=== PATIENT | female | born 1940 | race Caucasian/White ===

== ENCOUNTER → 2018-01-11 | Outpatient (CLI) | payer MEDICARE ==
[~2018-01-11] MED LIST: ASPI325 PO; CLOP75 PO; LEVSOD125 PO; Lisinopril2.5 MG; METF500 PO; PRED5 PO; Percocet 5-3251 EACH PO; SERT100 PO
[2018-01-11 15:25] LABS: Source, Urine Clean Catch
[2018-01-11 18:07] LABS: Appearance, Urine Clear (Clear); Bilirubin, Urine Neg (Neg); Blood, Urine Neg (Neg); Color, Urine Yellow (P-Yellow); Glucose Qualitative, Urine Neg (Neg); Ketones, Urine Neg (Neg); Leukocyte Esterase, Urine 1+ (Neg); Nitrite, Urine Neg (Neg); Protein, Urine Neg (Neg); Specific Gravity, Urine 1.015 (1.003-1.022); Urobilinogen, Urine NORM (Normal)
[2018-01-11 19:13] LABS: Bacteria Many /hpf; Red Blood Cells, Urine 0-2 /hpf (0-2); Squamous Epithelial Cells Few /hpf (Few)
== END | disposition home or self-care (01) ==
LOC: LAB 15:23 → LAB SHORT 15:23
PROVIDERS: Internal Medicine
DX: N39.0 Urinary tract infection, site not specified (principal)
CPT/HCPCS: 81001; 87077; 87086; 87147; 87186

== ENCOUNTER → 2019-05-14 | Outpatient (CLI) | payer MEDICARE ==
[2019-05-14 13:24] LABS: Source, Urine Clean Catch
[2019-05-14 14:57] LABS: Bilirubin, Urine Neg (Neg); Blood, Urine Neg (Neg); Glucose Qualitative, Urine Neg (Neg); Ketones, Urine Neg (Neg); Leukocyte Esterase, Urine 2+ (Neg); Nitrite, Urine Neg (Neg); Protein, Urine Neg (Neg); Specific Gravity, Urine 1.015 (1.003-1.022); Urobilinogen, Urine NORM (Normal)
[2019-05-14 15:07] LABS: Appearance, Urine Clear (Clear); Color, Urine Yellow (P-Yellow)
[2019-05-14 15:08] LABS: Bacteria Few /hpf; Red Blood Cells, Urine 0-2 /hpf (0-2); Squamous Epithelial Cells Few /hpf (Few)
== END | disposition home or self-care (01) ==
LOC: LAB SHORT 13:23 → OLS 13:23 → EDSTATUS 05-12 19:50 → LAB FUT 05-12 19:50
PROVIDERS: Physician Assistant
DX: N39.0 Urinary tract infection, site not specified (principal)
CPT/HCPCS: 81001; 87086; 87147

== ENCOUNTER → 2020-10-20 | Outpatient (CLI) | payer MEDICARE ==
[~2020-10-20] MED LIST changes: +CODACE30 PO; +LEVO750 PO
[2020-10-20 10:38] LABS: Source, Urine Clean Catch
[2020-10-20 12:21] LABS: Appearance, Urine Clear (Clear); Bilirubin, Urine Neg (Neg); Blood, Urine Neg (Neg); Color, Urine Yellow (P-Yellow); Glucose Qualitative, Urine Neg (Neg); Ketones, Urine Neg (Neg); Leukocyte Esterase, Urine 1+ (Neg); Nitrite, Urine Neg (Neg); Protein, Urine 1+ (Neg); Urobilinogen, Urine NORM (Normal)
[2020-10-20 12:40] LABS: Bacteria Many /hpf; Squamous Epithelial Cells Mod /hpf (Few)
[2020-10-20 12:41] LABS: Red Blood Cells, Urine 0-2 /hpf (0-2)
== END | disposition home or self-care (01) ==
LOC: LAB SHORT 10:35
PROVIDERS: Internal Medicine
DX: R30.0 Dysuria (principal)
CPT/HCPCS: 81001; 87086

== ENCOUNTER 2020-10-22 05:13 | Emergency (ER) | payer MEDICARE ==
[~2020-10-22] VITALS: Ht 162.6 cm; Wt 78.9 kg
[~2020-10-22 05:13] MED LIST changes: -CODACE30 PO; -LEVO750 PO
[2020-10-22 05:37] LABS: BASOPHILS ABSOLUTE AUTO 0.05 K/mm3 (0.00-0.23); BASOPHILS PERCENT AUTO 0 % (0-2); EOSINOPHILS ABSOLUTE AUTO 0.19 K/mm3 (0.00-0.68); EOSINOPHILS PERCENT AUTO 1 % (0-6); Hematocrit 36.3 % (33.0-51.0); Hemoglobin 11.7 g/dL (11.5-16.0); IMMATURE GRAN PERCENT AUTO 1 % (0-1); LYMPHOCYTES ABSOLUTE AUTO 1.18 K/mm3 (0.84-5.20); LYMPHOCYTES PERCENT AUTO 8 % (21-46); MONOCYTES ABSOLUTE AUTO 1.17 K/mm3 (0.16-1.47); MONOCYTES PERCENT AUTO 8 % (4-13); Mean Corpuscular HGB 28.6 pg (26.0-34.0); Mean Corpuscular HGB Conc 32.2 g/dL (31.5-36.5); Mean Corpuscular Volume 89 fL (80-100); Mean Platelet Volume 9.9 fL (9.1-12.4); NEUTROPHILS PERCENT AUTO 82 % (41-73); Platelet Count 433 K/mm3 (150-400); RDW Coefficient Variation 13.9 % (11.7-14.2); RDW Standard Deviation 45.4 fL (35.1-46.3); Red Blood Cell Count 4.09 M/mm3 (3.80-5.20); White Blood Cell Count 14.49 K/mm3 (4.00-11.30)
[2020-10-22 05:59] LABS: Alanine Aminotransfer (ALT/SGP 14 U/L (12-78); Albumin, Blood 2.7 g/dL (3.4-5.0); Albumin/Globulin Ratio 0.6 (0.8-1.8); Alk Phos 93 U/L (50-136); Anion Gap 8 mmol/L (6-16); Aspartate Aminotrans (AST/SGOT 15 U/L (12-37); Bilirubin, Total 0.4 mg/dL (0.1-1.0); Blood Urea Nitrogen 12 mg/dL (8-24); CO2, Blood 23 mmol/L (21-32); Calcium, Blood 8.7 mg/dL (8.5-10.1); Chloride, Blood 103 mmol/L (98-108); Creatinine, Blood 0.57 mg/dL (0.40-1.00); Globulin, Blood 4.7 g/dL (2.2-4.0); Glomerular Filtration Rate >60 (60-); Glucose, Blood 125 mg/dL (70-99); Potassium, Blood 3.3 mmol/L (3.5-5.5); Sodium, Blood 134 mmol/L (136-145); Total Protein, Blood 7.4 g/dL (6.4-8.2); Troponin I <0.015 ng/mL (0.000-0.040)
[2020-10-22] MEDS ORDERED: CODACE30 PO (06:57)
[2020-10-22] MEDS ORDERED: LEVO750 PO (06:57)
== END 2020-10-22 07:40 | disposition home or self-care (01) ==
LOC: ER 05:13
PROVIDERS: Emergency Medicine
DX: J18.9 Pneumonia, unspecified organism (principal); E87.6 Hypokalemia; I10 Essential (primary) hypertension; E11.9 Type 2 diabetes mellitus without complications; E03.9 Hypothyroidism, unspecified; Z79.899 Other long term (current) drug therapy; Z79.02 Long term (current) use of antithrombotics/antiplatelets
CPT/HCPCS: 71045; 80053; 84484; 85025; 93005; 93010; 99285-25; A9270

== ENCOUNTER 2020-11-28 21:34 | Inpatient (IN) | payer MEDICARE ==
[~2020-11-28] VITALS: Ht 160 cm; Wt 73.5 kg
[~2020-11-28 21:34] MED LIST changes: +CODACE30 PO; +LEVO750 PO; -Lisinopril2.5 MG; +Lisinopril2.5 MG PO
[2020-11-28 23:11] LABS: BASOPHILS ABSOLUTE AUTO 0.03 K/mm3 (0.00-0.23); BASOPHILS PERCENT AUTO 0 % (0-2); EOSINOPHILS ABSOLUTE AUTO 0.01 K/mm3 (0.00-0.68); EOSINOPHILS PERCENT AUTO 0 % (0-6); Hematocrit 26.1 % (33.0-51.0); Hemoglobin 8.3 g/dL (11.5-16.0); IMMATURE GRAN ABSOLUTE AUTO 0.08 K/mm3 (0.00-0.10); IMMATURE GRAN PERCENT AUTO 1 % (0-1); LYMPHOCYTES PERCENT AUTO 11 % (21-46); MONOCYTES ABSOLUTE AUTO 0.61 K/mm3 (0.16-1.47); MONOCYTES PERCENT AUTO 5 % (4-13); Mean Corpuscular HGB 25.9 pg (26.0-34.0); Mean Corpuscular HGB Conc 31.8 g/dL (31.5-36.5); Mean Corpuscular Volume 82 fL (80-100); Mean Platelet Volume 9.5 fL (9.1-12.4); NEUTROPHILS ABSOLUTE AUTO 9.41 K/mm3 (1.96-9.15); NEUTROPHILS PERCENT AUTO 82 % (41-73); Platelet Count 397 K/mm3 (150-400); RDW Coefficient Variation 15.7 % (11.7-14.2); RDW Standard Deviation 46.5 fL (35.1-46.3); White Blood Cell Count 11.44 K/mm3 (4.00-11.30)
[2020-11-28 23:43] LABS: Alanine Aminotransfer (ALT/SGP 59 U/L (12-78); Albumin, Blood 1.6 g/dL (3.4-5.0); Albumin/Globulin Ratio 0.4 (0.8-1.8); Alk Phos 148 U/L (50-136); Anion Gap 8 mmol/L (6-16); Aspartate Aminotrans (AST/SGOT 140 U/L (12-37); Bilirubin, Total 0.5 mg/dL (0.1-1.0); Blood Urea Nitrogen 7 mg/dL (8-24); Bun/Creatinine Ratio 16.2 (12.0-20.0); CO2, Blood 30 mmol/L (21-32); Calcium, Blood 7.5 mg/dL (8.5-10.1); Chloride, Blood 96 mmol/L (98-108); Creatinine, Blood 0.43 mg/dL (0.40-1.00); Glomerular Filtration Rate >60 (60-); Glucose, Blood 144 mg/dL (70-99); Potassium, Blood 2.3 mmol/L (3.5-5.5); Sodium, Blood 134 mmol/L (136-145); Total Protein, Blood 5.6 g/dL (6.4-8.2)
--- NOTE | 2020-11-29 03:20 | NUR ---
RECEIVED REPORT FROM ARACELIED RN. PT TRANSPORTED TO MEDICAL FLOOR VIA GURNEY, AMBULATED TO BATHROOM, THEN TO BED WITH 1 ASSIST; STEADY GAIT. VS REVIEWED,WNL. SITUATED IN BED, ORIENTED TO ROOM/UNIT. IVF INFUSING ORDERED. NO OTHER ACUTE NEEDS ASSESSED AT THIS TIME. CALL LIGHT, POSSESSIONS IN REACH, BED IN LOW AND LOCKED POSITION WITH ALARMS ON. WILL REPORT OFF TO ONCOMING RN.
[2020-11-29 05:00] LABS: BASOPHILS ABSOLUTE AUTO 0.01 K/mm3 (0.00-0.23); BASOPHILS PERCENT AUTO 0 % (0-2); EOSINOPHILS ABSOLUTE AUTO 0.02 K/mm3 (0.00-0.68); EOSINOPHILS PERCENT AUTO 0 % (0-6); Hematocrit 26.9 % (33.0-51.0); Hemoglobin 8.5 g/dL (11.5-16.0); IMMATURE GRAN ABSOLUTE AUTO 0.07 K/mm3 (0.00-0.10); IMMATURE GRAN PERCENT AUTO 1 % (0-1); LYMPHOCYTES ABSOLUTE AUTO 1.11 K/mm3 (0.84-5.20); LYMPHOCYTES PERCENT AUTO 10 % (21-46); MONOCYTES PERCENT AUTO 6 % (4-13); Mean Corpuscular HGB 25.8 pg (26.0-34.0); Mean Corpuscular HGB Conc 31.6 g/dL (31.5-36.5); Mean Corpuscular Volume 82 fL (80-100); Mean Platelet Volume 9.4 fL (9.1-12.4); NEUTROPHILS ABSOLUTE AUTO 9.37 K/mm3 (1.96-9.15); NEUTROPHILS PERCENT AUTO 83 % (41-73); Platelet Count 448 K/mm3 (150-400); RDW Coefficient Variation 15.7 % (11.7-14.2); RDW Standard Deviation 46.4 fL (35.1-46.3); Red Blood Cell Count 3.29 M/mm3 (3.80-5.20); White Blood Cell Count 11.28 K/mm3 (4.00-11.30)
--- NOTE | 2020-11-29 05:00 | NUR ---
SPOKE TO DR. CHEN REGARDING PT'S IVF ORDER. NO NEW ORDERS RECEIVED, CONTINUE TO INFUSE ORDERED. PHARMACIST INFORMED OF CONVERSATION.
[2020-11-29 05:15] LABS: International Normalized Ratio 1.32
[2020-11-29 05:24] LABS: Anion Gap 8 mmol/L (6-16); Blood Urea Nitrogen 7 mg/dL (8-24); Bun/Creatinine Ratio 14.9 (12.0-20.0); CO2, Blood 31 mmol/L (21-32); Calcium, Blood 8.1 mg/dL (8.5-10.1); Chloride, Blood 92 mmol/L (98-108); Creatinine, Blood 0.47 mg/dL (0.40-1.00); Glomerular Filtration Rate >60 (60-); Glucose, Blood 175 mg/dL (70-99); Magnesium, Blood 1.9 mg/dL (1.6-2.4); Potassium, Blood 2.6 mmol/L (3.5-5.5); Sodium, Blood 131 mmol/L (136-145)
[2020-11-29 11:11] LABS: Color, Body Fluid Red (None-Yellow)
[2020-11-29 11:12] LABS: Appearance, Body Fluid Cloudy (Clear); Automated BF RBC Count 0.011 M/mm3 (0-0); Body Fluid WBC Count 30140 /mm3 (0-999); RBC Count, Body Fluid 11000 /mm3 (0-0)
[2020-11-29 11:19] LABS: Protein, Body Fluid 0.6 g/dL
[2020-11-29 11:53] LABS: Total Cell Count, Body Fluid 100
--- NOTE | 2020-11-29 17:11 | NUR ---
SHIFT SUMMARY PATIENT ALERT AND ORIENTED THIS SHIFT. PATIENT DOWN FOR THOROCENTESIS THIS AM. PATIENT ALTERNATES FROM BED TO CHAIR THIS SHIFT. PATIENT UP TO BATHROOM WITH SBA. PATIENT STATES PAIN FROM PREVIOUS RIB FRACTURES IS ACCEPTABLE THIS SHIFT. PATIENT DENIES FURTHER PAIN AT THIS TIME. PATIENT'S DAUGHTER IN THE ROOM VISITING THIS AFTERNOON. PATIENT CURRENTLY LYING IN BED RESTING.
[2020-11-30 06:15] LABS: Hematocrit 27.8 % (33.0-51.0); Hemoglobin 8.5 g/dL (11.5-16.0); Mean Corpuscular HGB Conc 30.6 g/dL (31.5-36.5); Mean Corpuscular Volume 85 fL (80-100); Mean Platelet Volume 9.5 fL (9.1-12.4); Platelet Count 389 K/mm3 (150-400); RDW Coefficient Variation 15.8 % (11.7-14.2); RDW Standard Deviation 48.7 fL (35.1-46.3); Red Blood Cell Count 3.27 M/mm3 (3.80-5.20)
--- NOTE | 2020-11-30 06:31 | NUR ---
SHIFT SUMMARY NO ACUTE CHANGES THIS SHIFT, NO C/O ANY KIND, SLEPT T/O THE NIGHT, JUST RETURNED TO ROOM FROM IMAGING, BEDRESTING WATCHING TV, CALL LIGHT IN REACH, WILL CONT TO MONITOR UNTIL REPORT GIVEN TO DAY RN.
[2020-11-30 06:38] LABS: Anion Gap 6 mmol/L (6-16); Blood Urea Nitrogen 8 mg/dL (8-24); Bun/Creatinine Ratio 14.8 (12.0-20.0); CO2, Blood 31 mmol/L (21-32); Calcium, Blood 8.2 mg/dL (8.5-10.1); Chloride, Blood 99 mmol/L (98-108); Creatinine, Blood 0.54 mg/dL (0.40-1.00); Ferritin, Serum 358 ng/mL (8-252); Glomerular Filtration Rate >60 (60-); Glucose, Blood 122 mg/dL (70-99); Iron Serum 30 ug/dL (50-170); Percent Saturation 17.6 % (15.0-50.0); Potassium, Blood 3.4 mmol/L (3.5-5.5); Sodium, Blood 136 mmol/L (136-145); Total Iron Binding Capacity 170 ug/dL (250-450)
--- NOTE | 2020-11-30 17:10 | NUR ---
SHIFT SUMMARY PATIENT A/O, SBA TO THE BATHROOM THIS SHIFT. PATIENT DOWN TO IMAGING FOR CHEST TUBE PLACEMENT THIS AM. PATIENT BACK WITH CT IN RIGHT POSTERIOR CHEST. PATIENT IDENTIFIES MILD DISCOMFORT AT INSERTION SITE. TUBE DRAINING LIGHT BROWN FLUID. 225 ML REMOVED AT THIS TIME. PATIENT ALTERNATING LYING IN BED AND SITTING UP IN CHAIR. PATIENT CURRENTLY LYING IN BED RESTING.
--- NOTE | 2020-11-30 19:40 | NUR ---
RECEIVED BEDSIDE REPORT FROM TAMAR RN. PT LYING IN BED. RESP E/U ON RA. A/O. SBA TO BATHROOM. BED ALARMED. CHEST TUBE TO RIGHT SIDE, DRAINING PURULENT CHALKY COLORED FLUID. WILL CONTINUE TO PROVIDE CARE T/O SHIFT. CALL LT IN REACH.
--- NOTE | 2020-11-30 21:59 | NUR ---
PT LYING IN BED WATCHING TV. NO NEEDS AT THIS TIME. PT HAD BEEN UP EARLIER TO WASH FACE AND DO SOME PERSONAL CARE. SECTION HAND HELPER SUPERVISED. BED ALARMED. CALL LT IN REACH.
--- NOTE | 2020-12-01 00:04 | NUR ---
PT RESTING QUIETLY. CALL LT IN REACH. BED ALARM ON.
[2020-12-01 05:00] LABS: Hematocrit 28.7 % (33.0-51.0); Hemoglobin 8.7 g/dL (11.5-16.0); Mean Corpuscular HGB 25.9 pg (26.0-34.0); Mean Corpuscular HGB Conc 30.3 g/dL (31.5-36.5); Mean Corpuscular Volume 85 fL (80-100); Mean Platelet Volume 9.5 fL (9.1-12.4); Platelet Count 381 K/mm3 (150-400); RDW Standard Deviation 49.1 fL (35.1-46.3); Red Blood Cell Count 3.36 M/mm3 (3.80-5.20); White Blood Cell Count 8.14 K/mm3 (4.00-11.30)
--- NOTE | 2020-12-01 05:08 | NUR ---
PT RESTING QUIETLY. BED ALARM ON. CALL LT IN REACH.
[2020-12-01 05:30] LABS: Anion Gap 6 mmol/L (6-16); Blood Urea Nitrogen 7 mg/dL (8-24); CO2, Blood 30 mmol/L (21-32); Calcium, Blood 8.2 mg/dL (8.5-10.1); Chloride, Blood 101 mmol/L (98-108); Creatinine, Blood 0.54 mg/dL (0.40-1.00); Glomerular Filtration Rate >60 (60-); Glucose, Blood 112 mg/dL (70-99); Potassium, Blood 3.9 mmol/L (3.5-5.5); Sodium, Blood 137 mmol/L (136-145)
--- NOTE | 2020-12-01 05:39 | NUR ---
SHIFT SUMMARY: TRIALED PT WALKING INTO BATHROOM USING FWW, PT BECAME PRETTY WEAK, BSC WAS USED FOR REMAINDER OF SHIFT. MEDICATED WITH ONE TYLENOL WITH CODEINE WITH GOOD RESULTS. PT RESTED WELL. BED ALARM WAS SET X 2. CHEST TUBE PATENT AND DRAINING VANG CHALKY FLUID. NO ACUTE CHANGES. WILL CONTINUE TO PROVIDE CARE UNTIL SHIFT REPORT.
--- NOTE | 2020-12-02 04:34 | NUR ---
SUMMARY NO NEW ISSUES NOTED. PT WAS ABLE TO SLEEP. PT VOIDING FREQUENTLY. PT CX DRAIN, DRAINING MILKY FLUID. PT DENIES CX PAIN OR SOB. CALL LIGHT IN REACH.
[2020-12-02 09:15] LABS: Hematocrit 31.4 % (33.0-51.0); Hemoglobin 9.6 g/dL (11.5-16.0); Mean Corpuscular HGB 26.2 pg (26.0-34.0); Mean Corpuscular HGB Conc 30.6 g/dL (31.5-36.5); Mean Corpuscular Volume 86 fL (80-100); Mean Platelet Volume 9.3 fL (9.1-12.4); Platelet Count 400 K/mm3 (150-400); RDW Coefficient Variation 16.6 % (11.7-14.2); RDW Standard Deviation 50.3 fL (35.1-46.3); Red Blood Cell Count 3.67 M/mm3 (3.80-5.20); White Blood Cell Count 7.11 K/mm3 (4.00-11.30)
[2020-12-02 09:32] LABS: Anion Gap 5 mmol/L (6-16); Blood Urea Nitrogen 7 mg/dL (8-24); Bun/Creatinine Ratio 11.7 (12.0-20.0); CO2, Blood 28 mmol/L (21-32); Calcium, Blood 8.3 mg/dL (8.5-10.1); Chloride, Blood 103 mmol/L (98-108); Glomerular Filtration Rate >60 (60-); Glucose, Blood 157 mg/dL (70-99); Potassium, Blood 4.3 mmol/L (3.5-5.5); Sodium, Blood 136 mmol/L (136-145)
[2020-12-02 10:47] LABS: BASOPHILS PERCENT MAN 0 % (0-2); EOSINOPHILS ABSOLUTE MAN 0.21 K/mm3 (0.00-0.68); EOSINOPHILS PERCENT MAN 3 % (0-6); LYMPHOCYTES ABSOLUTE MAN 1.06 K/mm3 (0.84-5.20); LYMPHOCYTES PERCENT MAN 15 % (21-46); MONOCYTES ABSOLUTE MAN 0.14 K/mm3 (0.16-1.47); MONOCYTES PERCENT MAN 2 % (4-13); NEUTROPHILS ABSOLUTE MAN 5.68 K/mm3 (1.96-9.15); SEG NEUTROPHILS PERCENT MAN 80 % (41-73); TOTAL CELLS COUNTED 100
--- NOTE | 2020-12-02 15:01 | NUR ---
CHEST TUBE CLAMPED AND CATHFLO INSTILLED BY DR GALLARDO. VERBAL ORDER TO REMOVE CLAMP AT 1600. PATIENT TOLERATED WITHOUT COMPLAINTS.
--- NOTE | 2020-12-02 16:33 | NUR ---
1610: CHEST TUBE UNCLAMPED, PATIENT TAKEN FOR 200 FEET WALK TO HELP PROMOTE DRAINAGE.
--- NOTE | 2020-12-02 18:48 | NUR ---
SHIFT SUMMARY 140 CHEST TUBE OUTPUT, MILKY/CLOUDY, RESTREPO/LIGHT BROWN OUTPUT. UP TO CHAIR FOR ALL MEALS. AMBULATED IN THE SANCHEZ X3.
--- NOTE | 2020-12-03 05:43 | NUR ---
SUMMARY PT HAD NO ISSUES NOTED. PT HAS SLEPT T/O SHIFT. PT CX TUBE DRAINING WELL. PT CURRENTLY SLEEPING IN NO DISTRESS. CALL LIGHT IN REACH.
--- NOTE | 2020-12-03 16:58 | NUR ---
SHIFT SUMMARY PT IS AOX4 AND PLEASANT. PT DENIES PAIN, N/V, SOB. PT IS ONE ASSIST IN ROOM. PT APPETITE REMAINS GOOD. NO PROCEDURES DONE THIS SHIFT, THOUGH ECCLESIASTICAL WORKER PLANS TO REMOVE DRAIN THIS LIZ/TONIGHT AND MONITOR PROGRESS IN THE AM. PT'S DAUGHTER VISITED THIS LIZ. PT IS IN ROOM, CALL LIGHT IN REACH, LOW POSITION WITH ALARM ON.
--- NOTE | 2020-12-04 06:31 | NUR ---
SHIFT SUMMARY PT IS A 80 Y/O FEMALE, ADMITTED FOR PLEURAL EFFUSION. SHE IS A&O X 4, SBA TO THE BATHROOM. CHEST TUBE REMAINS IN PLACE IN L SIDE, DRAINING SEROSANGUINOUS FLUID. PT WAS MEDICATED FOR BACK PAIN WITH PRN TYLENOL. NO C/O NAUSEA OR SOB. VITAL SIGNS STABLE. NO ACUTE CHANGES IN PT CONDITION NOTED DURING THE NIGHT. WILL CONTINUE TO MONITOR AND TREAT PER EMAR UNTIL HAND OFF TO DAY SHIFT RN.
[2020-12-04] MEDS ORDERED: AMOCLA875 PO (12:23)
[2020-12-04] MEDS ORDERED: VISBIOME 112.51 EACH PO (12:24)
--- NOTE | 2020-12-04 13:33 | NUR ---
DISCHARGE NOTE PT IS AOX4. PT HAS NO IV ACCESS. PT DRESSED SELF IN HOME CLOTHING. PT BELONGINGS GATHERED. THIS RN REVIEWED DC INSTRUCTIONS AND MEDICATIONS WITH PT WHO VERBALIZED UNDERSTANDING. PT ASSISTED INTO WHEELCHAIR. PT LEFT UNIT WITH TAKE AWAY MAN AND BELONGINGS PRESENT. PT LEFT IN PRIVATE VEHICLE WITH FAMILY.
== END 2020-12-04 13:09 | disposition home health service (06) | DRG 179 ==
LOC: ER 21:34 → MEDS 11-29 01:55
PROVIDERS: Internal Medicine; Student in an Organized Health Care Education/Training Program; ADMIT Internal Medicine
PROC: 0W993ZZ Drainage of Right Pleural Cavity, Percutaneous Approach (ICD-10-PCS; principal; 2020-11-29)
PROC: 0W9930Z Drainage of Right Pleural Cavity with Drainage Device, Percutaneous Approach (ICD-10-PCS; 2020-11-30)
DX: J86.9 Pyothorax without fistula (principal); Z66 Do not resuscitate; B95.4 Other streptococcus as the cause of diseases classified elsewhere; E03.9 Hypothyroidism, unspecified; I10 Essential (primary) hypertension; D63.8 Anemia in other chronic diseases classified elsewhere; S22.41XD Multiple fractures of ribs, right side, subsequent encounter for fracture with routine healing; J45.909 Unspecified asthma, uncomplicated; Z87.01 Personal history of pneumonia (recurrent); F32.9 Major depressive disorder, single episode, unspecified; R13.10 Dysphagia, unspecified; E11.9 Type 2 diabetes mellitus without complications; Z90.49 Acquired absence of other specified parts of digestive tract; Z90.710 Acquired absence of both cervix and uterus; Z79.02 Long term (current) use of antithrombotics/antiplatelets; Z79.899 Other long term (current) drug therapy; Z87.891 Personal history of nicotine dependence; Z86.73 Personal history of transient ischemic attack (TIA), and cerebral infarction without residual deficits; W18.30XA Fall on same level, unspecified, initial encounter
CPT/HCPCS: 32555; 32557; 36415; 71045; 71046; 71260; 80048; 80053; 82728; 83540; 83550; 83735; 84132; 84145; 84157; 85025; 85027; 85610; 87070; 87075; 87205; 89051; 93005; 93010; 94760; 96365; 96366; 96367; 96375; 96376; 97110; 97110-CQ; 97116; 97116-CQ; 97162; 97530; 97530-CQ; 99285-25; A9270; C9113; G0378; J0295; J0696; J1644; J1956; J2997; J3480; J7030; J7040; Q9967

== ENCOUNTER 2021-02-05 21:42 | Inpatient (IN) | payer MEDICARE ==
[~2021-02-05] VITALS: Ht 165.1 cm; Wt 73.8 kg
[~2021-02-05 21:42] MED LIST changes: +AMOCLA875 PO; +VISBIOME 112.51 EACH PO
[2021-02-05 22:06] LABS: PCO2 Arterial 40.2 mmHg (35-45); PO2 Arterial 207 mmHg (80-100); pH Blood Arterial 7.19 (7.35-7.45)
[2021-02-05 22:07] LABS: BASOPHILS ABSOLUTE AUTO 0.12 K/mm3 (0.00-0.23); BASOPHILS PERCENT AUTO 1 % (0-2); EOSINOPHILS ABSOLUTE AUTO 0.54 K/mm3 (0.00-0.68); EOSINOPHILS PERCENT AUTO 3 % (0-6); Hematocrit 38.8 % (33.0-51.0); Hemoglobin 11.4 g/dL (11.5-16.0); Mean Corpuscular HGB Conc 29.4 g/dL (31.5-36.5); Mean Corpuscular Volume 89 fL (80-100); Mean Platelet Volume 11.4 fL (9.1-12.4); Platelet Count 377 K/mm3 (150-400); RDW Coefficient Variation 16.7 % (11.7-14.2); RDW Standard Deviation 54.4 fL (35.1-46.3); Red Blood Cell Count 4.38 M/mm3 (3.80-5.20); White Blood Cell Count 16.73 K/mm3 (4.00-11.30)
[2021-02-05 22:08] LABS: IMMATURE GRAN ABSOLUTE AUTO 0.05 K/mm3 (0.00-0.10); IMMATURE GRAN PERCENT AUTO 0 % (0-1); LYMPHOCYTES ABSOLUTE AUTO 10.42 K/mm3 (0.84-5.20); LYMPHOCYTES PERCENT AUTO 62 % (21-46); MONOCYTES ABSOLUTE AUTO 0.65 K/mm3 (0.16-1.47); MONOCYTES PERCENT AUTO 4 % (4-13); NEUTROPHILS ABSOLUTE AUTO 4.95 K/mm3 (1.96-9.15); NEUTROPHILS PERCENT AUTO 30 % (41-73)
[2021-02-05 22:27] LABS: Alanine Aminotransfer (ALT/SGP 81 U/L (12-78); Albumin/Globulin Ratio 0.8 (0.8-1.8); Alk Phos 78 U/L (50-136); Anion Gap 14 mmol/L (6-16); Aspartate Aminotrans (AST/SGOT 134 U/L (12-37); Bilirubin, Total 0.4 mg/dL (0.1-1.0); Blood Urea Nitrogen 13 mg/dL (8-24); Bun/Creatinine Ratio 16.8 (12.0-20.0); CO2, Blood 18 mmol/L (21-32); Calcium, Blood 8.7 mg/dL (8.5-10.1); Chloride, Blood 109 mmol/L (98-108); Creatinine, Blood 0.78 mg/dL (0.40-1.00); Globulin, Blood 3.7 g/dL (2.2-4.0); Glomerular Filtration Rate >60 (60-); Glucose, Blood 225 mg/dL (70-99); Potassium, Blood 4.6 mmol/L (3.5-5.5); Sodium, Blood 141 mmol/L (136-145); Total Protein, Blood 6.7 g/dL (6.4-8.2); Troponin I <0.015 ng/mL (0.000-0.040)
[2021-02-06 04:01] LABS: BASOPHILS ABSOLUTE AUTO 0.02 K/mm3 (0.00-0.23); BASOPHILS PERCENT AUTO 0 % (0-2); EOSINOPHILS ABSOLUTE AUTO 0.01 K/mm3 (0.00-0.68); EOSINOPHILS PERCENT AUTO 0 % (0-6); Hematocrit 31.4 % (33.0-51.0); Hemoglobin 9.3 g/dL (11.5-16.0); IMMATURE GRAN ABSOLUTE AUTO 0.02 K/mm3 (0.00-0.10); IMMATURE GRAN PERCENT AUTO 0 % (0-1); LYMPHOCYTES ABSOLUTE AUTO 0.44 K/mm3 (0.84-5.20); LYMPHOCYTES PERCENT AUTO 8 % (21-46); MONOCYTES ABSOLUTE AUTO 0.11 K/mm3 (0.16-1.47); MONOCYTES PERCENT AUTO 2 % (4-13); Mean Corpuscular HGB 25.5 pg (26.0-34.0); Mean Corpuscular HGB Conc 29.6 g/dL (31.5-36.5); Mean Corpuscular Volume 86 fL (80-100); Mean Platelet Volume 11.2 fL (9.1-12.4); NEUTROPHILS ABSOLUTE AUTO 5.19 K/mm3 (1.96-9.15); NEUTROPHILS PERCENT AUTO 90 % (41-73); Platelet Count 165 K/mm3 (150-400); RDW Coefficient Variation 16.6 % (11.7-14.2); RDW Standard Deviation 52.4 fL (35.1-46.3); Red Blood Cell Count 3.64 M/mm3 (3.80-5.20); White Blood Cell Count 5.79 K/mm3 (4.00-11.30)
[2021-02-06 04:19] LABS: PCO2 Arterial 36.3 mmHg (35-45); PO2 Arterial 94.7 mmHg (80-100); pH Blood Arterial 7.38 (7.35-7.45)
[2021-02-06 04:26] LABS: Anion Gap 9 mmol/L (6-16); Blood Urea Nitrogen 17 mg/dL (8-24); Bun/Creatinine Ratio 25.8 (12.0-20.0); CO2, Blood 22 mmol/L (21-32); Chloride, Blood 111 mmol/L (98-108); Creatinine, Blood 0.66 mg/dL (0.40-1.00); Glomerular Filtration Rate >60 (60-); Glucose, Blood 155 mg/dL (70-99); Potassium, Blood 3.6 mmol/L (3.5-5.5); Sodium, Blood 142 mmol/L (136-145); Troponin I <0.015 ng/mL (0.000-0.040)
--- NOTE | 2021-02-06 06:00 | NUR ---
SHIFT SUMMARY PT IS ALERT AND ORIENTEDM VERY PLEASANT. PT IS VERY SLEEPY AND WILL HAVE A SHORT CONVERSATION AND FALL ASLEEP. THERE HAVE BEEN NO ACUTE CHANGES T/O THE NIGHT. BP'S ARE SOFT, HR AND SATS ARE STABLE. PT IS ON 4LNC WITH SATS ABOVE 92%. PT DENIES CHEST PAIN OR SOB. PT IS ABLE TO USE BSC, STS THAT AT HOME SHE USES A CANE TO GET AROUND. PT LIVES ALONE. CALL LIGHT IS WITHIN REACH. WILL CONTINUE TO MONITOR.
--- NOTE | 2021-02-06 11:47 | NUR ---
UPDATE PT ALERT AND ORIENTED. VS STABLE. O2 SATS REMAIN ABOVE 90% ON 2L NC. HR NSR 80'S. PT DENIES ANY PAIN. PT ABLE TO AMBULATE TO COMMODE WITH MINIMAL ASSISTANCE. STATUS CHANGED TO MEDICAL WITH TELE. PT WENT DOWN FOR CT PE STUDY AND AWAITING RESULTS. REPORT PROVIDED TO MEDICAL FLOOR RN. PT TO BE TAKEN UP BY .
--- NOTE | 2021-02-06 17:42 | NUR ---
PT TRANSFER NOTE. PT WAS TRANSFERRED FROM PCU 10 BY WHEELCHAIR AND SELF TRANSFERRED TO BED AT 12:45. SHE IS AXO X4 AND HAS REMOVED HER 2L OF 02 BECAUSE IT WAS "BUGGING ME WHILE I EAT" SATS AT 96%. SHE IS ANXIOUS ABOUT HER DOG AT HOME, BUT SAYS SHE WILL CALL HER DAUGHTER TO TAKE CARE OF HER.
--- NOTE | 2021-02-06 17:58 | NUR ---
SHIFT SUMMARY PT IS AXO 4 UP IN BED AND ABOUT THE ROOM INDEPENDENTLY. SHE IS EAGER TO KNOW MORE ABOUT GOING HOME AND ANXIOUS TO RETURN TO HER NEW DOG. SHE DENIES PAIN, SOB, OR DIZZINESS WHEN UP TO THE BEDSIDE COMMODE. WAS ON 2L WHEN TRANSFERRED HERE BUT HAS REMOVED THEM FOR COMFORT AND IS STILL SATTING 96% ON RM 02. WILL CONTINUE TO MONITOR.
--- NOTE | 2021-02-06 19:10 | NUR ---
ASSUMED CARE REPORT RECEIVED FROM NEREIDA BARRERA. PT RESTING, IN NAD. NO ACUTE NEEDS ASSESSED AT THIS TIME. CALL LIGHT, POSSESSIONS IN REACH, BED IN LOW AND LOCKED POSITION.
[2021-02-07 05:19] LABS: Hematocrit 36.2 % (33.0-51.0); Hemoglobin 10.9 g/dL (11.5-16.0); Mean Corpuscular HGB 26.1 pg (26.0-34.0); Mean Corpuscular HGB Conc 30.1 g/dL (31.5-36.5); Mean Corpuscular Volume 87 fL (80-100); Mean Platelet Volume 11.1 fL (9.1-12.4); Platelet Count 211 K/mm3 (150-400); RDW Coefficient Variation 16.8 % (11.7-14.2); Red Blood Cell Count 4.18 M/mm3 (3.80-5.20); White Blood Cell Count 8.61 K/mm3 (4.00-11.30)
[2021-02-07 05:39] LABS: Anion Gap 6 mmol/L (6-16); Blood Urea Nitrogen 16 mg/dL (8-24); CO2, Blood 26 mmol/L (21-32); Calcium, Blood 8.7 mg/dL (8.5-10.1); Chloride, Blood 111 mmol/L (98-108); Creatinine, Blood 0.67 mg/dL (0.40-1.00); Glomerular Filtration Rate >60 (60-); Glucose, Blood 125 mg/dL (70-99); Potassium, Blood 4.3 mmol/L (3.5-5.5); Sodium, Blood 143 mmol/L (136-145)
--- NOTE | 2021-02-07 07:45 | NUR ---
SHIFT SUMMARY PT RESTING, IN NAD. PT APPEARED TO SLEEP ON AND OFF T/O NIGHT. VS REVIEWED, O2 SATS STABLE ON 5L/NC; PT REPORTS INCREASING SOB, BUT IMPROVED WITH O2 USE. DENIES PAIN. NO CARDIAC EVENTS OVERNIGHT. NO ACUTE CONCERNS TO REPORT. NO ACUTE NEEDS ASSESSED AT THIS TIME. CALL LIGHT, POSSESSIONS IN REACH, BED IN LOW AND LOCKED POSITION. REPORT GIVEN TO NEREIDA BARRERA.
--- NOTE | 2021-02-07 19:03 | NUR ---
SHIFT SUMMARY PT IS SITTING IN ROOM ON RM AIR. SHE HAS BEEN TITRATING DEPENDING ON HER O2 NEEDS THIS AFTERNOON SHE SPILLED HER ORANGES AND WAS CLEANING IT UP. THIS MADE HIM SHORT OF BREATH. 02 WAS PUT ON AND BUMPED TO 5L. PT DECIDEDS WHEN SHE IS WELL OXYGENATED ENOUGH. SHE IS 96 ON RM AIR WHEN SHE REMOVES HER 02. HERE UNTIL PLEURAL EFFUSION IS RESOLVED AND PT NO LONGER HAS BOUTS OF SOB. IS HOPEFUL THAT LASIX AND REST WILL RESOLVE ISSUE. WILL CONTINUE TO MONITOR.
--- NOTE | 2021-02-07 23:08 | NUR ---
spoke with PT's DTR Do about moved PT to room 353 & updated on current need for 5 l nc intermittantly due to dyspnea.
[2021-02-08 04:27] LABS: Hematocrit 32.5 % (33.0-51.0); Mean Corpuscular HGB Conc 30.8 g/dL (31.5-36.5); Mean Corpuscular Volume 84 fL (80-100); Mean Platelet Volume 10.7 fL (9.1-12.4); Platelet Count 192 K/mm3 (150-400); RDW Coefficient Variation 16.6 % (11.7-14.2); RDW Standard Deviation 51.4 fL (35.1-46.3); Red Blood Cell Count 3.85 M/mm3 (3.80-5.20); White Blood Cell Count 6.27 K/mm3 (4.00-11.30)
[2021-02-08 04:48] LABS: Alanine Aminotransfer (ALT/SGP 68 U/L (12-78); Albumin, Blood 2.9 g/dL (3.4-5.0); Albumin/Globulin Ratio 0.9 (0.8-1.8); Alk Phos 63 U/L (50-136); Anion Gap 5 mmol/L (6-16); Aspartate Aminotrans (AST/SGOT 42 U/L (12-37); Bilirubin, Total 0.6 mg/dL (0.1-1.0); Blood Urea Nitrogen 15 mg/dL (8-24); Bun/Creatinine Ratio 24.3 (12.0-20.0); CO2, Blood 28 mmol/L (21-32); Calcium, Blood 8.6 mg/dL (8.5-10.1); Chloride, Blood 109 mmol/L (98-108); Creatinine, Blood 0.62 mg/dL (0.40-1.00); Globulin, Blood 3.3 g/dL (2.2-4.0); Glomerular Filtration Rate >60 (60-); Glucose, Blood 105 mg/dL (70-99); Potassium, Blood 3.7 mmol/L (3.5-5.5); Sodium, Blood 142 mmol/L (136-145); Total Protein, Blood 6.2 g/dL (6.4-8.2)
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
[2021-02-08] MEDS ORDERED: FURO20 PO (13:30)
[2021-02-08] MEDS ORDERED: METO25ER PO (13:31)
[2021-02-08] MEDS ORDERED: GUAI600T33 PO (13:34)
--- NOTE | 2021-02-08 15:29 | NUR ---
DISCHARGE SUMMARY PT A/O X3; PLEASANT AND COOPERATIVE WITH CARE. HAS MOMENTS OF FORGETFULNESS. ABLE TO AMBULATE IND IN HER ROOM. BECOMES SLIGHTLY DYSPNEIC ON EXERTION BUT KNOWS WHEN TO TAKE BREAKS. DC HOME AND TO FOLLOW UP WITH PCP AND CARDIOLOGY. WENT OVER DISCHARGE INSTRUCTIONS WITH PT AND SHE VERBALIZED UNDERSTANDING. CONCERNED ABOUT MAKING TIME TO COME TO APPOINTMENTS BECAUSE [facility] IS VERY BUSY WITH MANY DOCTORS APPOINTMENTS. PICKED UP FROM THE HOSPITAL BY HER DAUGHTER.
== END 2021-02-08 15:35 | disposition home or self-care (01) | DRG 871 ==
LOC: ER 21:42 → MEDS 23:05 → PCU 23:05 → MEDS 02-06 12:25
PROVIDERS: Emergency Medicine; Family Medicine; Internal Medicine; ADMIT Family Medicine
PROC: 5A09357 Assistance with Respiratory Ventilation, Less than 24 Consecutive Hours, Continuous Positive Airway Pressure (ICD-10-PCS; principal; 2021-02-05)
DX: A41.9 Sepsis, unspecified organism (principal); R65.21 Severe sepsis with septic shock; J18.9 Pneumonia, unspecified organism; J96.01 Acute respiratory failure with hypoxia; E87.2 Acidosis; I50.20 Unspecified systolic (congestive) heart failure; Z66 Do not resuscitate; I11.0 Hypertensive heart disease with heart failure; I08.3 Combined rheumatic disorders of mitral, aortic and tricuspid valves; E11.9 Type 2 diabetes mellitus without complications; I27.20 Pulmonary hypertension, unspecified; E03.9 Hypothyroidism, unspecified; J43.9 Emphysema, unspecified; Z86.73 Personal history of transient ischemic attack (TIA), and cerebral infarction without residual deficits; Z79.899 Other long term (current) drug therapy; Z90.49 Acquired absence of other specified parts of digestive tract; Z90.710 Acquired absence of both cervix and uterus; Z87.440 Personal history of urinary (tract) infections
CPT/HCPCS: 36415; 36600; 51798; 71045; 71260; 80048; 80053; 82803; 82947; 83605; 83880; 84484; 85025; 85027; 85379; 87040; 93005; 93010; 93306; 94660; 94762; 96365; 96375; 97162; 97166; 99285-25; A9270; J0456; J0696; J1650; J1940; J2060; J2930; J7050; J7120; Q9967

== ENCOUNTER 2021-10-01 12:16 | Emergency (ER) | payer OTHER ==
[~2021-10-01] VITALS: Ht 162.6 cm; Wt 79.8 kg
[~2021-10-01 12:16] MED LIST changes: +FURO20 PO; +FUROSEMIDE20 MG PO; +GUAI600T33 PO; +LISI20 PO; +METO25ER PO; +OMEP20ER PO; +PLAVIX75 MG PO
[2021-10-01 14:14] LABS: BASOPHILS ABSOLUTE AUTO 0.06 K/mm3 (0.00-0.23); BASOPHILS PERCENT AUTO 1 % (0-2); EOSINOPHILS ABSOLUTE AUTO 0.21 K/mm3 (0.00-0.68); EOSINOPHILS PERCENT AUTO 3 % (0-6); Hematocrit 36.1 % (33.0-51.0); Hemoglobin 10.6 g/dL (11.5-16.0); IMMATURE GRAN ABSOLUTE AUTO 0.03 K/mm3 (0.00-0.10); IMMATURE GRAN PERCENT AUTO 0 % (0-1); LYMPHOCYTES ABSOLUTE AUTO 1.37 K/mm3 (0.84-5.20); LYMPHOCYTES PERCENT AUTO 19 % (21-46); MONOCYTES ABSOLUTE AUTO 0.47 K/mm3 (0.16-1.47); MONOCYTES PERCENT AUTO 7 % (4-13); Mean Corpuscular HGB 23.1 pg (26.0-34.0); Mean Corpuscular HGB Conc 29.4 g/dL (31.5-36.5); Mean Corpuscular Volume 79 fL (80-100); NEUTROPHILS ABSOLUTE AUTO 4.96 K/mm3 (1.96-9.15); NEUTROPHILS PERCENT AUTO 70 % (41-73); Platelet Count 183 K/mm3 (150-400); RDW Coefficient Variation 24.1 % (11.7-14.2); RDW Standard Deviation 66.5 fL (35.1-46.3); Red Blood Cell Count 4.58 M/mm3 (3.80-5.20)
[2021-10-01 14:18] LABS: Bun/Creatinine Ratio 26.3 (12.0-20.0); Calcium, Blood 8.4 mg/dL (8.5-10.1); Creatinine, Blood 0.8 mg/dL (0.40-1.00)
[2021-10-01] MEDS ORDERED: Mupirocin22 GM TOP (15:25)
[2021-10-01] MEDS ORDERED: CEPH500 PO (15:25)
[2021-10-01] MEDS ORDERED: Bactrim Ds Tab1 EACH PO (15:25)
== END 2021-10-01 15:34 | disposition home or self-care (01) ==
LOC: ER 12:16
PROVIDERS: Student in an Organized Health Care Education/Training Program
DX: L03.115 Cellulitis of right lower limb (principal); I10 Essential (primary) hypertension; E11.9 Type 2 diabetes mellitus without complications; J45.909 Unspecified asthma, uncomplicated; Z87.891 Personal history of nicotine dependence
CPT/HCPCS: 36415; 80048; 85025; A9270

== ENCOUNTER → 2021-10-23 | Outpatient (CLI) | payer OTHER ==
[~2021-10-23] MED LIST changes: +Bactrim Ds Tab1 EACH PO; +CEPH500 PO; +Mupirocin22 GM TOP
== END | disposition home or self-care (01) ==
LOC: LAB SHORT 16:17 → LAB 16:17
DX: L08.9 Local infection of the skin and subcutaneous tissue, unspecified (principal)
CPT/HCPCS: 87070; 87075; 87077; 87186; 87205

== ENCOUNTER 2022-05-16 17:05 | Inpatient (IN) | payer OTHER ==
[~2022-05-16] VITALS: Ht 157.5 cm; Wt 53.7 kg
[2022-05-16 18:21] LABS: BASOPHILS ABSOLUTE AUTO 0.04 K/mm3 (0.00-0.23); BASOPHILS PERCENT AUTO 0 % (0-2); EOSINOPHILS ABSOLUTE AUTO 0.15 K/mm3 (0.00-0.68); EOSINOPHILS PERCENT AUTO 2 % (0-6); Hematocrit 19.4 % (33.0-51.0); IMMATURE GRAN ABSOLUTE AUTO 0.06 K/mm3 (0.00-0.10); IMMATURE GRAN PERCENT AUTO 1 % (0-1); LYMPHOCYTES ABSOLUTE AUTO 1.62 K/mm3 (0.84-5.20); LYMPHOCYTES PERCENT AUTO 17 % (21-46); MONOCYTES ABSOLUTE AUTO 0.57 K/mm3 (0.16-1.47); MONOCYTES PERCENT AUTO 6 % (4-13); Mean Corpuscular HGB 20.2 pg (26.0-34.0); Mean Corpuscular HGB Conc 27.8 g/dL (31.5-36.5); Mean Corpuscular Volume 73 fL (80-100); NEUTROPHILS ABSOLUTE AUTO 7.39 K/mm3 (1.96-9.15); NEUTROPHILS PERCENT AUTO 75 % (41-73); NRBC ABSOLUTE 0.02 K/mm3 (0.00-0.02); NRBC Auto 0.2 /100 WBC (0.0-0.2); Platelet Count 328 K/mm3 (150-400); RDW Coefficient Variation 20.9 % (11.7-14.2); RDW Standard Deviation 55.4 fL (35.1-46.3); Red Blood Cell Count 2.67 M/mm3 (3.80-5.20); White Blood Cell Count 9.83 K/mm3 (4.00-11.30)
[2022-05-16 18:27] LABS: Hemoglobin 5.4 g/dL (11.5-16.0)
[2022-05-16 18:45] LABS: Albumin/Globulin Ratio 0.8 (0.8-1.8); Bilirubin, Total 0.6 mg/dL (0.1-1.0); Bun/Creatinine Ratio 25.8 (12.0-20.0); Calcium, Blood 9.1 mg/dL (8.5-10.1); Creatinine, Blood 1.51 mg/dL (0.40-1.00); Globulin, Blood 3.6 g/dL (2.2-4.0); Potassium, Blood 4.7 mmol/L (3.5-5.5); Total Protein, Blood 6.6 g/dL (6.4-8.2)
[2022-05-16 19:52] LABS: International Normalized Ratio 1.19; Prothrombin Time Results 12.4 Sec (9.7-11.5)
--- NOTE | 2022-05-16 23:33 | NUR ---
TALKED TO DR MEI. ORDER FOR REGLAN 10MG ONCE IV. PT CAN HAVE WATER BUT NOTHING ELSE UNTIL NOON TOMORROW THEN COMPLETE NPO STATUS.
--- NOTE | 2022-05-17 00:28 | NUR ---
ASSUMED CARE OF PT AT 0000 PT ALERT BUT CONFUSED. A/O X2 KNOWS SELF, . BLOOD CURRENTLY TRANFUSING AT 200 MLS/HR. BP 109/78, HR 80'S-90'S. LUNG SOUNDS CLEAR BILATERALLY THROUGHOUT. RR 18. TEMP 97.3. SPO2 UNRELIABLE D/T POOR PERFUSION. 5L NC INITIATED AT THIS TIME. CHOI CATH INSERTED IN ER. PATENT AND DRAINING TO GRAVITY WITH YELLOW URINE PRESENT. BRUISE NOTED ON LEFT FOREHEAD AREA. BRUISE REPORTED FROM FALL MULTIPLE DAYS PRIOR TO THIS ADMIT. SEE FULL ASSESSMENT FOR FURTHER INFORMATION.
--- NOTE | 2022-05-17 01:03 | NUR ---
CALLED DR NOEL D/T PT PAIN AND RESTLESSNESS. 25MCG FENT Q4 PRN ORDERED.
[2022-05-17 02:11] LABS: Hematocrit 25.5 % (33.0-51.0)
[2022-05-17 02:14] LABS: Albumin, Blood 2.9 g/dL (3.4-5.0); Albumin/Globulin Ratio 0.8 (0.8-1.8); Bilirubin, Total 1.1 mg/dL (0.1-1.0); Bun/Creatinine Ratio 26.7 (12.0-20.0); Calcium, Blood 8.8 mg/dL (8.5-10.1); Creatinine, Blood 1.5 mg/dL (0.40-1.00); Globulin, Blood 3.6 g/dL (2.2-4.0); Potassium, Blood 4.7 mmol/L (3.5-5.5); Total Protein, Blood 6.5 g/dL (6.4-8.2)
--- NOTE | 2022-05-17 05:26 | NUR ---
END OF SHIFT SUMMARY A/O X1. PT VERY CONFUSED, UNABLE TO REORIENT TO CURRENT ILLNESS AND SITUATION. NO FAMILY IN CONTACT OF NOW. CARDIAC- SBP 90'S- 100'S. HR 90'S. PT IS VERY SPASTIC WITH MOVEMENTS THAT DOES NOT ALOW ECG MONITOR TO SHEET METAL SUPERINTENDENT GOOD FEED. WHEN PT IS SLEEPING ECG ALARMS A-FIB AND IRREGULAR HR WITH MULTIPLE PVC'S. RESP- SPO2 >90% ON RA. LUNG SOUNDS CLEAR BILATERALLY THROUGHOUT. GI, - NO BM THIS SHIFT. CHOI CATH DRAINING TO GRAVITY WITH YELLOW URINE PRESENT. PT IS NPO EXCEPT WATER UNTIL NOON TODAY, THEN SPECIFICALLY NPO FOR EVERYTHING. ADMIT INFORMATION NEEDED FROM [facility]. WILL CONTINUE TO MONITOR UNTIL SHIFT REPORT GIVEN TO AM RN.
[2022-05-17 06:18] LABS: BASOPHILS ABSOLUTE AUTO 0.05 K/mm3 (0.00-0.23); BASOPHILS PERCENT AUTO 1 % (0-2); EOSINOPHILS ABSOLUTE AUTO 0.13 K/mm3 (0.00-0.68); EOSINOPHILS PERCENT AUTO 1 % (0-6); Hemoglobin 7.4 g/dL (11.5-16.0); IMMATURE GRAN ABSOLUTE AUTO 0.06 K/mm3 (0.00-0.10); IMMATURE GRAN PERCENT AUTO 1 % (0-1); LYMPHOCYTES ABSOLUTE AUTO 1.37 K/mm3 (0.84-5.20); LYMPHOCYTES PERCENT AUTO 14 % (21-46); MONOCYTES ABSOLUTE AUTO 0.57 K/mm3 (0.16-1.47); MONOCYTES PERCENT AUTO 6 % (4-13); Mean Corpuscular HGB 23.1 pg (26.0-34.0); Mean Corpuscular HGB Conc 30.8 g/dL (31.5-36.5); Mean Corpuscular Volume 75 fL (80-100); Mean Platelet Volume 10.2 fL (9.1-12.4); NEUTROPHILS ABSOLUTE AUTO 7.34 K/mm3 (1.96-9.15); NEUTROPHILS PERCENT AUTO 77 % (41-73); Platelet Count 253 K/mm3 (150-400); RDW Coefficient Variation 20.7 % (11.7-14.2); RDW Standard Deviation 55.8 fL (35.1-46.3); Red Blood Cell Count 3.21 M/mm3 (3.80-5.20); White Blood Cell Count 9.52 K/mm3 (4.00-11.30)
--- NOTE | 2022-05-17 07:00 | NUR ---
ASSUME CARE: I have assumed care of this patient. At this time she is resting quietly in bed. When asked her name is states, "I don't know." She does not follow commands. milk deliverer RN reported that pt received two units PRBCs though it does not appear to be documented.
[2022-05-17] MEDS ORDERED: CLOP75 PO (10:00)
[2022-05-17] MEDS ORDERED: FURO80 PO (10:01)
[2022-05-17] MEDS ORDERED: EUTHYROX100 MCG PO (10:02)
[2022-05-17] MEDS ORDERED: ZESTRIL40 M1 PO (10:03)
[2022-05-17] MEDS ORDERED: OMEP20ER PO (10:04)
[2022-05-17] MEDS ORDERED: KLOR-CON 1010 ME1 PO (10:05)
[2022-05-17] MEDS ORDERED: SERT100 PO (10:06)
[2022-05-17 10:36] LABS: Source, Urine Foley catheter
[2022-05-17 10:59] LABS: Bilirubin, Urine Neg (Neg); Blood, Urine 1+ (Neg); Glucose Qualitative, Urine Neg (Neg); Ketones, Urine Neg (Neg); Leukocyte Esterase, Urine Neg (Neg); Nitrite, Urine Neg (Neg); Protein, Urine Neg (Neg); Specific Gravity, Urine 1.015 (1.003-1.022); Urobilinogen, Urine NORM (Normal)
[2022-05-17 11:08] LABS: Appearance, Urine Clear (Clear); Color, Urine Yellow (P-Yellow)
[2022-05-17 11:09] LABS: Bacteria Not Seen /hpf; Red Blood Cells, Urine 0-2 /hpf (0-2); Squamous Epithelial Cells Not Seen /hpf (Few); White Blood Cells, Urine Not Seen /hpf (0-5)
[2022-05-17 11:10] LABS: Hematocrit 24.1 % (33.0-51.0); Hemoglobin 7.7 g/dL (11.5-16.0)
[2022-05-17 14:21] LABS: Hematocrit 23.6 % (33.0-51.0); Hemoglobin 7.5 g/dL (11.5-16.0)
--- NOTE | 2022-05-17 16:36 | NUR ---
05/17/22 1636 Mary Andrews MAC CASE WITH DR. GUERRA IN ICU 03; SEE ANESTHESIA RECORDS.
[2022-05-17 17:23] LABS: Hemoglobin 6.9 g/dL (11.5-16.0)
--- NOTE | 2022-05-17 18:07 | NUR ---
PROVIDER UPDATE: Dr James notified of request for transfusion from Dr Cartagena.
--- NOTE | 2022-05-17 19:04 | NUR ---
SHIFT SUMMARY: bedside EGD performed today. Ortho consulted and visited pt and son at bedside to discuss further plans. NEURO: pt more alert this evening. she is oriented to self and year. CARDIAC: BP's soft. Sinus arrythmia on monitor with frequent PVCs RESPIRATORY: clear/dim on RA GI/: no BM. corey in place and draining urine. Pt tolerated sips of water and apple sauce well PSYCH/SOCIAL: son and daughter at bedside today. both were updated on pt status and plan
--- NOTE | 2022-05-17 23:55 | NUR ---
ASSUMED CARE ASSUMED CARE AT 1900. PT A/O TO SELF AND YEAR ONLY. PT INITIALLY C/O OF JAW PAIN 10/14. STATES "I JUST CAME FROM THE DENTIST". WHEN ASKED ABOUT PAIN A FEW MINUTES LATER, PT STATES "NO, IM FINE". PT WINCES WHEN TURNING ONTO RIGHT HIP BUT DENIES PAIN IN HIP. SR W/ FREQUENT PVC'S. RATE 80'S. SBP 90-100'S. VSS. SEE SHIFT ASSESSMENT FOR FULL ASSESSMENT. ONE UNIT PRBC INFUSED. NS AT 75ML/HR. CHOI PATENT AND DRAINING TO GRAVITY.
[2022-05-18 00:24] LABS: Hematocrit 26.6 % (33.0-51.0); Hemoglobin 8.6 g/dL (11.5-16.0)
--- NOTE | 2022-05-18 01:25 | NUR ---
NURSE NOTIFIY FROM DR MEI PHARMACY CALLED TO DISCUSS OPTIONS AFTER READING DR MEI NURSE NOTIFY TO CHANGE PAIN MEDS D/T INTERACTION WITH DIFLUCAN. PHARMACIST LOOKED INTO THE MEDICATIONS AND STATED THAT DIFLUCAN INCREASED "POTENCY OF FENTANYL" AND OTHER PAIN MEDICATIONS. PHARMACIST RECOMMENDED FENTANYL OVER OTHER NARCOTICS WITH SAME ISSUE. HOSP CALLED AND UPDATED ON SITUATION. ORDERS TO CHANGE FENTANYL TO Q6 VS Q4.
--- NOTE | 2022-05-18 01:55 | NUR ---
TRANSFER TO PCU REPORT GIVEN AND PT TRANSPORTED VIA BED TO PCU 02 W/ THIS RN. PT IN NO DISTRESS PRIOR AND DURING TRANSPORT.
--- NOTE | 2022-05-18 02:53 | NUR ---
PT TRANSFERRED TO PCU 2 @ APPROX 0150 FROM ICU. PT ORIENTED TO SELF AND YEAR ONLY. PT ABLE TO ANSWER THAT SHE WAS IN THE HOSPITAL BUT WHEN ASKED WHAT CITY SHE WAS IN SHE RESPONDED "I KNOW IT'S WRONG, BUT [place] I THINK." PT HAS NS INFUSING AT 75/HR IN THE LEFT FOREARM IV. IV PATENT. PT DENYING ANY PAIN AT THIS TIME, BUT WINCES WITH TRANSFER. CHOI PRESENT AND DRAINING TO GRAVITY. PT ON TELE, SR IN THE 80'S AT THIS TIME. VSS. NAD. LUNGS DIMINISHED BUT CLEAR T/O. PPP. PT HAS CALL LIGHT IN REACH.
--- NOTE | 2022-05-18 05:10 | NUR ---
SHIFT SUMMARY PT IS PLEASANT AND COOPERATIVE WITH CARE. NO MAJOR CHANGES SINCE LAST NOTE UPDATE. PT HR REMAINS 80'S IN REGULAR ARRYTHMIA, SPO2 >90% ON RA. PT BP SOFT, BUT THIS HAS BEEN CONSISTENT THROUGHOUT PT STAY. PT C/O MILD PAIN IN RIGHT HIP WITH ANY ADJUSTMENT. PT ALSO COMPLAINS OF DIFFICULTY SLEEPING. THIS RN MEDICATED PT WITH PRN ANALGESICS THAT WERE EFFECTIVE AND PT APPEARS TO BE RESTING COMFORTABLY AT THIS TIME. PT REMAINS NPO DUE TO POSSIBLE PROCEDURE TOMORROW. PER WOOD HEEL FLAP INSERTER, PLAN FOR SURGEON TO MEET WITH PT AND FAMILY IN THE MORNING TO DISCUSS THE RISK VS BENEFITS ON DOING SURGERY ON THE RIGHT FRACTURED HIP. THE PT WAS ABLE TO HELP MINIMALLY WITH REPOSITIONING. PT USES CALL LIGHT APPROPRIATELY TO USE BED UMAÑA. NO BM THIS SHIFT. PT CHOI PATENT AND DRAINING TO GRAVITY. NS INFUSING AT 75HR. WILL CONTINUE TO CARE FOR PT AND REPORT TO ONCOMING DAY SHIFT RN.
[2022-05-18 05:18] LABS: Hematocrit 27.6 % (33.0-51.0); Hemoglobin 8.7 g/dL (11.5-16.0)
[2022-05-18 05:36] LABS: Bun/Creatinine Ratio 26.1 (12.0-20.0); Calcium, Blood 8.3 mg/dL (8.5-10.1); Creatinine, Blood 1.19 mg/dL (0.40-1.00)
--- NOTE | 2022-05-18 09:47 | NUR ---
UPDATE PT FENTANYL DC'D PER . MD ADRIAN W/ ORDERS FOR IV MORPHINE PRN FOR PAIN, SEE EMAR. PER REPORT PT C/O OF PAIN LAST NIGHT, CURRENTLY DENYING.
[2022-05-18 11:33] LABS: Hematocrit 27.9 % (33.0-51.0); Hemoglobin 8.9 g/dL (11.5-16.0)
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
--- NOTE | 2022-05-18 17:08 | NUR ---
SHIFT SUMMARY PT ALERT, ORIENTED TO SELF, FAMILY. NOT IMPULSIVE, FOLLOWS DIRECTIONS. SP02>90% ON RA. TELEMETRY SHOWS NSR W/ PVC'S, HR MOSTLY 80'S, VSS. CHOI CATHETER DRAINING YELLOW URINE TO GRAVITY. ONE DARK BROWN BM THIS SHIFT W/ BEDPAN. PT ABLE TO EAT MECHANICAL SOFT DIET, LUNCH AND DINNER. FLUIDS INFUSED PER EMAR. MD ADRIAN IN ROOM THIS AM TO ASSESS. PALLIATIVE CARE IN ROOM THIS EVENING TO TALK TO SON ABOUT PLAN OF CARE MOVING FORWARD. SON WISHES TO MOVE FORWARD WITH HIP SURGERY. HBG STABLE THIS SHIFT. PT RESTING IN ROOM WITH SON, CALL LIGHT IN REACH.
[2022-05-19 05:46] LABS: BASOPHILS ABSOLUTE AUTO 0.04 K/mm3 (0.00-0.23); BASOPHILS PERCENT AUTO 1 % (0-2); EOSINOPHILS ABSOLUTE AUTO 0.31 K/mm3 (0.00-0.68); EOSINOPHILS PERCENT AUTO 4 % (0-6); Hematocrit 28.9 % (33.0-51.0); IMMATURE GRAN ABSOLUTE AUTO 0.05 K/mm3 (0.00-0.10); IMMATURE GRAN PERCENT AUTO 1 % (0-1); LYMPHOCYTES ABSOLUTE AUTO 1.28 K/mm3 (0.84-5.20); LYMPHOCYTES PERCENT AUTO 16 % (21-46); MONOCYTES ABSOLUTE AUTO 0.39 K/mm3 (0.16-1.47); MONOCYTES PERCENT AUTO 5 % (4-13); Mean Corpuscular HGB Conc 31.1 g/dL (31.5-36.5); Mean Corpuscular Volume 77 fL (80-100); Mean Platelet Volume 9.8 fL (9.1-12.4); NEUTROPHILS ABSOLUTE AUTO 5.73 K/mm3 (1.96-9.15); NEUTROPHILS PERCENT AUTO 74 % (41-73); Platelet Count 228 K/mm3 (150-400); RDW Coefficient Variation 21.2 % (11.7-14.2); RDW Standard Deviation 58.5 fL (35.1-46.3); Red Blood Cell Count 3.75 M/mm3 (3.80-5.20)
[2022-05-19 06:10] LABS: Albumin, Blood 2.8 g/dL (3.4-5.0); Albumin/Globulin Ratio 0.8 (0.8-1.8); Bilirubin, Total 0.8 mg/dL (0.1-1.0); Bun/Creatinine Ratio 22.6 (12.0-20.0); Calcium, Blood 8.5 mg/dL (8.5-10.1); Creatinine, Blood 0.93 mg/dL (0.40-1.00); Globulin, Blood 3.4 g/dL (2.2-4.0); Potassium, Blood 3.8 mmol/L (3.5-5.5); Total Protein, Blood 6.2 g/dL (6.4-8.2)
--- NOTE | 2022-05-19 06:37 | NUR ---
Assumed care of the pt at 1900. She is alert and oriented to self and family only which is close to baseline per family due to possible dementia. The patient has had some right hip pain following repositioning and bedpan so was medicated with morphine x1 and has been able to rest. She had one small pasty dark brown bowel movement. Hodge is in place and draining clear yellow urine. Patient has been NPO since midnight for possible right hip repair. She had more pain this morning but was relieved with repositioning onto her left side. The patient has been sinus on tele with multifocal PVCs. She has been in the high 90s oxygen saturation on RA.
--- NOTE | 2022-05-19 09:28 | NUR ---
AM NOTE: PATIENT ALERT TO SELF, FAMILY AND THAT SHE IS IN HOSPITAL. NOT ABLE TO TELL ME DETAILS OF WHY SHE IS HERE. ONLY AWARE AT THIS TIME THAT SHE NEEDS "HIP SURGERY". BEDREST AT THIS TIME. Q2 TURNS. PATIENT ABLE TO TURN SELF IN BED, NEEDING REMINDERS TO TURN. COMPLAINS OF RIGHT HIP PAIN, DENIES NEED FOR MEDICATION THIS AM. ON ROOM AIR, LUNGS SOUNDING CLEAR. NO COUGH. PATIENT REMINDED TO TAKE DEEP BREATHS. TELE SHOWING SINUS RHYTHM WITH PVC'S. HR 80-90'S. SOFTER BP. DENIES CHEST PAIN/PRESSURE. PPP. DENIES ABDOMINAL PAIN/NAUSEA. INITIALLY NPO PENDING SURGERY, CALL PLACED AND NO SURG TODAY AT THIS TIME. PATIENT EATING BREAKFAST. ONE BM LAST NIGHT, NOC SHIFT REPORTED IT BEING BROWN AND NO SIGNS OF BLEEDING. CHOI CATH REMAINS IN PLACE DRAINING YELLOW URINE TO GRAVITY. CATH CARE COMPLETED THIS AM. CALL LIGHT IN REACH. BED ALARM IN PLACE FOR SAFETY. SURG STATUS NO TELE.
--- NOTE | 2022-05-19 14:48 | NUR ---
POSITIVE BLOOD CULTURE X1 REPORTED TO THIS RN AT 1444 BY MICRO. BLOOD CULTURE SHOWING GRAM + COCCI IN CLUSTERS. CALL PLACED TO DR. DE JESUS, NO ANSWER. CALL PLACED TO DR. ADRIAN, UPDATED ON MICRO RESULT. NO NEW ORDERS FOR THIS RN TO PLACE. PATIENT SLEEPING AT THIS TIME, BED ALARM ON.
--- NOTE | 2022-05-19 16:10 | NUR ---
TRANSFER NOTE: NO ACUTE CHANGES. PATIENT AND DAUGHTER UPDATED ON TRANSFER AND ROOM. VITAL SIGNS REMAIN STABLE WITH SOFT BP. COMPLAINS OF RIGHT HIP PAIN, MEDICATED PER EMAR X1. REPORT GIVEN TO RAJAN. PATIENT TRANSFERRED WITH ALL PERSONAL BELONGINGS.
--- NOTE | 2022-05-19 19:18 | NUR ---
TRANSFER NOTE PATIENT TRANSFER TO SURGICAL FROM PCU AT 1600. ALERT BUT CONFUSED. PLEASANT AND COOPERATIVE. CHOI PATENT AND DRAINING. TELE DC'D. RIGHT HIP FX, RIGHT KNEE BENT, MOVES RIGHT LEG SOMEWHAT WITH MINIMAL PAIN. DR MEI MET WITH PATIENT AND SON IN ROOM. DISCUSSED IMPROVING ANEMIA, AND PROS AND CONS OF COMPLETEING COLONOSCOPY DURING THIS HOSPITALIZATION. AT THIS POINT DR MEI BELIEVES THE GI BLEED HAS STOPPED DUE TO IMPROVING H&H AND BROWN STOOLS. H&H BEING CHECKED TONIGHT. DR HARPER TO ROOM TO CONSENT FOR SURGERY TO REPAIR RIGHT HIP WITH PATIENT'S SON. REPORT GIVEN TO DENTAL INSTRUMENT MAKER RN.
[2022-05-20 00:36] LABS: Hematocrit 27.8 % (33.0-51.0); Hemoglobin 8.7 g/dL (11.5-16.0)
--- NOTE | 2022-05-20 02:27 | NUR ---
MD Dee notified of Patients H+H value, Hgb 8.7 and Hct 27.8 No orders received.
[2022-05-20 05:22] LABS: BASOPHILS ABSOLUTE AUTO 0.06 K/mm3 (0.00-0.23); BASOPHILS PERCENT AUTO 1 % (0-2); EOSINOPHILS PERCENT AUTO 7 % (0-6); Hematocrit 26.6 % (33.0-51.0); Hemoglobin 8.4 g/dL (11.5-16.0); IMMATURE GRAN ABSOLUTE AUTO 0.06 K/mm3 (0.00-0.10); IMMATURE GRAN PERCENT AUTO 1 % (0-1); LYMPHOCYTES PERCENT AUTO 16 % (21-46); MONOCYTES PERCENT AUTO 5 % (4-13); Mean Corpuscular HGB 24.4 pg (26.0-34.0); Mean Corpuscular HGB Conc 31.6 g/dL (31.5-36.5); Mean Corpuscular Volume 77 fL (80-100); Mean Platelet Volume 10.1 fL (9.1-12.4); NEUTROPHILS PERCENT AUTO 71 % (41-73); Platelet Count 192 K/mm3 (150-400); RDW Coefficient Variation 21.9 % (11.7-14.2); RDW Standard Deviation 60.6 fL (35.1-46.3); Red Blood Cell Count 3.44 M/mm3 (3.80-5.20); White Blood Cell Count 7.62 K/mm3 (4.00-11.30)
--- NOTE | 2022-05-20 06:20 | NUR ---
Patient oriented to self, forgetful at times but easily redirected. Morphine PRN given x1. patient slept well over night. NPO at midnight, maint fluids started. Hgb and Hct labs resulted and Luiz OLIVAS notified. No orders received.
--- NOTE | 2022-05-20 07:45 | NUR ---
PATIENT TO DAY SURGERY WITH RN DAVID, VIA BED.
--- NOTE | 2022-05-20 09:41 | NUR ---
05/20/22 0941 Amelia Ames PT ON SCHEDULED ANTIBIOTICS
--- NOTE | 2022-05-20 10:31 | NUR ---
PATIENT RETURNED TO ROOM IN BED. RIGHT HIP HAS X3 AQUACELD RESSINGS, C/D/I. PATIENT MOVING LEG AROUND A LOT, BENDING KNEE, VERY RESTLESS. REPORTS PAIN TO BE 7/10, PLAN TO MEDICATE PER EMAR. DR DE JESUS CALLED REGARDING ORAL PAIN MEDICATION, ORDERS ENETERED RECEIVED. VSS ON RA. CALL LIGHT IN REACH.
--- NOTE | 2022-05-20 18:05 | NUR ---
SHIFT SUMMARY POD 0 R HIP GAMMA NAIL. X3 AQUACEL DRESSINGS TO RIGHT HIP, C/D/I. PAIN MANAGED WELL PER EMAR. PATIENT EATING & DRINKING WELL. CHOI REMAINS IN [place] DRAINING CLEAR YELLOW URINE TO GRAVITY. ATTENDS IN [place], CHANGED NEEDED FOR INCONT BOWELS. PATIENT REFUSED TO GET UP TO CHAIR THIS SHIFT, PLAN FOR PT EVAL TOMORROW. A&O TO SELF & FAMILY. REORIENTS EASILY T/O SHIFT. CALL LIGHT IN REACH. WILL REPORT TO ONCOMING RN AT 1900.
[2022-05-21 05:00] LABS: BASOPHILS ABSOLUTE AUTO 0.02 K/mm3 (0.00-0.23); BASOPHILS PERCENT AUTO 0 % (0-2); EOSINOPHILS ABSOLUTE AUTO 0.02 K/mm3 (0.00-0.68); EOSINOPHILS PERCENT AUTO 0 % (0-6); Hematocrit 23.1 % (33.0-51.0); Hemoglobin 6.9 g/dL (11.5-16.0); IMMATURE GRAN ABSOLUTE AUTO 0.09 K/mm3 (0.00-0.10); IMMATURE GRAN PERCENT AUTO 1 % (0-1); LYMPHOCYTES ABSOLUTE AUTO 1.18 K/mm3 (0.84-5.20); LYMPHOCYTES PERCENT AUTO 13 % (21-46); MONOCYTES ABSOLUTE AUTO 0.53 K/mm3 (0.16-1.47); MONOCYTES PERCENT AUTO 6 % (4-13); Mean Corpuscular HGB Conc 29.9 g/dL (31.5-36.5); Mean Corpuscular Volume 81 fL (80-100); Mean Platelet Volume 9.9 fL (9.1-12.4); NEUTROPHILS ABSOLUTE AUTO 6.97 K/mm3 (1.96-9.15); NEUTROPHILS PERCENT AUTO 79 % (41-73); Platelet Count 269 K/mm3 (150-400); RDW Coefficient Variation 22.9 % (11.7-14.2); RDW Standard Deviation 65.7 fL (35.1-46.3); Red Blood Cell Count 2.87 M/mm3 (3.80-5.20); White Blood Cell Count 8.81 K/mm3 (4.00-11.30)
[2022-05-21 05:43] LABS: Bun/Creatinine Ratio 22.6 (12.0-20.0); Calcium, Blood 7.9 mg/dL (8.5-10.1); Creatinine, Blood 0.88 mg/dL (0.40-1.00); Potassium, Blood 4.3 mmol/L (3.5-5.5)
--- NOTE | 2022-05-21 06:43 | NUR ---
SHIFT SUMMARY AOX2-SELF, SITUATION. CONFUSED/FORGETFUL, PLACE, DATE, SITUATION AT TIMES. HAS NONSENSICAL SPEECH OR RESPONSES @TIMES. VSS. SBP SLIGHTLY SOFT 90-100'S. POD 1- R HIP NAILING. 3 AQUACEL DRESSING TO R HIP C/D/I. PT ABLE TO WIGGLE R FOOT & CAP REFIL <3 SEC, GOOD PEDAL PULSE, DENIES N/T. THIS AM HGB 6.9 DROPPED FROM 7.5 @1838 LAST NIGHT. CHOI PATENT & DRAINING DARK ORANGE URINE. CALL LIGHT IN REACH, BED ALARM IN REACH.
[2022-05-21 10:13] LABS: Percent Saturation 4.3 % (15.0-50.0)
--- NOTE | 2022-05-21 19:29 | NUR ---
SHIFT SUMMARY POD 2 R HIP REPAIR, ALERT BUT CONFUSED, FOLLOWS COMMANDS, COOPERATIVE WITH CARE, 2 UNITS PRBC THIS SHIFT, UP TO CHAIR FOR A FEW HOURS AFTER WORKING WITH THERAPY, CHOI STILL IN PLACE DRAINING TO GRAVITY. NO ACUTE EVENTS THIS SHIFT, CALL LIGHT IN REACH, REPORT GIVEN TO NEGRA PADRON
[2022-05-22 05:54] LABS: BASOPHILS ABSOLUTE AUTO 0.06 K/mm3 (0.00-0.23); BASOPHILS PERCENT AUTO 1 % (0-2); EOSINOPHILS ABSOLUTE AUTO 0.22 K/mm3 (0.00-0.68); EOSINOPHILS PERCENT AUTO 3 % (0-6); Hematocrit 25.5 % (33.0-51.0); Hemoglobin 8.1 g/dL (11.5-16.0); IMMATURE GRAN ABSOLUTE AUTO 0.05 K/mm3 (0.00-0.10); IMMATURE GRAN PERCENT AUTO 1 % (0-1); LYMPHOCYTES ABSOLUTE AUTO 1.27 K/mm3 (0.84-5.20); LYMPHOCYTES PERCENT AUTO 15 % (21-46); MONOCYTES ABSOLUTE AUTO 0.55 K/mm3 (0.16-1.47); MONOCYTES PERCENT AUTO 6 % (4-13); Mean Corpuscular HGB 25.8 pg (26.0-34.0); Mean Corpuscular HGB Conc 31.8 g/dL (31.5-36.5); Mean Corpuscular Volume 81 fL (80-100); Mean Platelet Volume 10.1 fL (9.1-12.4); NEUTROPHILS ABSOLUTE AUTO 6.59 K/mm3 (1.96-9.15); NEUTROPHILS PERCENT AUTO 75 % (41-73); Platelet Count 204 K/mm3 (150-400); RDW Coefficient Variation 21.2 % (11.7-14.2); RDW Standard Deviation 62.9 fL (35.1-46.3); RETICULOCYTE ABSOLUTE 0.1096 M/mm3 (0.0200-0.1100); RETICULOCYTE COUNT PERCENT 3.49 % (0.50-2.50); Red Blood Cell Count 3.14 M/mm3 (3.80-5.20); White Blood Cell Count 8.74 K/mm3 (4.00-11.30)
[2022-05-22 06:20] LABS: Albumin, Blood 2.5 g/dL (3.4-5.0); Albumin/Globulin Ratio 0.8 (0.8-1.8); Bilirubin, Total 0.6 mg/dL (0.1-1.0); Bun/Creatinine Ratio 19.2 (12.0-20.0); Creatinine, Blood 0.99 mg/dL (0.40-1.00); Potassium, Blood 4.1 mmol/L (3.5-5.5); Total Protein, Blood 5.5 g/dL (6.4-8.2)
--- NOTE | 2022-05-22 06:26 | NUR ---
Assumed care at 194, PRBC's infusing at this time. Blood transfusion ended at 1999, vital signs stable at this time. Large right upper arm bruise noted. Blood was infusing from a piv in this arm as per day shift nurse. Will continue to monitor. Hodge in place, mercedes care performed. Patient oriented to self. Forgetful at times, able to be redirected easily. 0600 Patient slept well overnight. PRN pain meds given upon request. Surgical sites WNL. Rt upper arm bruise improving.
--- NOTE | 2022-05-22 16:51 | NUR ---
ATTEMPTED TO MAKE A VISIT, PT IS AMB IN ROOM WITH PT AT THIS TIME. WILL ATTEMPT TO MAKE A VISIT AT A LATER TIME.
--- NOTE | 2022-05-22 18:04 | NUR ---
SHIFT SUMMARY PT A&O2/PLEASANT & COOPERATIVE WITH CARE, FOLLOWS CUES AND DIRECTIONS WELL. VSS/RA, SAIMA PO, VOIDING WELL, AMB 2 PP MOD ASSIST W/FWW & GB TO BRP, UP TO CHAIR T/O SHIFT, DENIES NEED FOR PAIN MEDICATION. WILL REPORT TO ONCOMING NOC RN.
[2022-05-23 04:54] LABS: BASOPHILS ABSOLUTE AUTO 0.04 K/mm3 (0.00-0.23); BASOPHILS PERCENT AUTO 1 % (0-2); EOSINOPHILS ABSOLUTE AUTO 0.37 K/mm3 (0.00-0.68); EOSINOPHILS PERCENT AUTO 4 % (0-6); IMMATURE GRAN ABSOLUTE AUTO 0.09 K/mm3 (0.00-0.10); IMMATURE GRAN PERCENT AUTO 1 % (0-1); LYMPHOCYTES ABSOLUTE AUTO 1.25 K/mm3 (0.84-5.20); LYMPHOCYTES PERCENT AUTO 14 % (21-46); MONOCYTES ABSOLUTE AUTO 0.55 K/mm3 (0.16-1.47); MONOCYTES PERCENT AUTO 6 % (4-13); Mean Corpuscular HGB 25.9 pg (26.0-34.0); Mean Corpuscular Volume 81 fL (80-100); Mean Platelet Volume 10.1 fL (9.1-12.4); NEUTROPHILS ABSOLUTE AUTO 6.49 K/mm3 (1.96-9.15); NEUTROPHILS PERCENT AUTO 74 % (41-73); Platelet Count 196 K/mm3 (150-400); RDW Coefficient Variation 21.9 % (11.7-14.2); RDW Standard Deviation 64.7 fL (35.1-46.3); Red Blood Cell Count 3.09 M/mm3 (3.80-5.20); White Blood Cell Count 8.79 K/mm3 (4.00-11.30)
[2022-05-23 05:27] LABS: Bun/Creatinine Ratio 15.4 (12.0-20.0); Calcium, Blood 8.1 mg/dL (8.5-10.1); Creatinine, Blood 0.85 mg/dL (0.40-1.00); Potassium, Blood 3.8 mmol/L (3.5-5.5)
--- NOTE | 2022-05-23 07:01 | NUR ---
SHIFT SUMMARY POD 3-R HIP REPAIR. AQUACEL DRESSING C/D/I. DENIES N/T. REPORTS MILD PAIN R HIP, DENIES NEED FOR MEDS. 1-2 ASSIST c TRANSFERS. DENIES N/V. TOLERATING LIQUIDS. HAD NOTHING BUT WATER & ICE CHIPS SINCE MIDNIGHT FOR PLANNED COLONOSCOPY TODAY, WILL BE NPO @1200. AOX1-2 SELF, FAMILY FOLLOWING SIMPLE DIRECTIONS. CALL LIGHT & ALARM IN PLACE FOR SAFETY.
--- NOTE | 2022-05-23 10:11 | NUR ---
DR HARPER STATES OKAY TO LIE PATIENT ON SIDE FOR COLONOSCOPY, PER DR MEI REQUEST
--- NOTE | 2022-05-23 10:12 | NUR ---
PT IS REFUSING ALL CARE, AND REFUSING TO TAKE PREP FOR COLONOSCOPY. SON HAS BEEN CALLED AT 0700 TO COME IN AND SUPPORT AND ENCOURAGE PATIENT. DR CANTU IN TO SEE PATIENT NOW.
--- NOTE | 2022-05-23 16:48 | NUR ---
SHIFT SUMMARY PT A&OX1, DISAGREEABLE TO ANY CARE/MEDICATIONS IN AM, DECLINED TO TAKE PREP FOR COLONOSCOPY. PT ATTITUDE IMPROVED DAY WENT ON, AND CERTAINLY ONCE SON WAS AT BEDSIDE. PLAN IS FOR SON TO BE BEDSIDE 0700 TO ENC AND SUPPORT PT TO PARTICIPATE IN SUREPREP, TO GET COLONOSCOPY DONE IN AFTERNOON. PT IS SAIMA PO, VOIDING WELL/BSC, AMB 1 PP MOD ASSIST W/FWW & GB, PAIN TOLERABLE, UP TO CHAIR T/O SHIFT/BLE ELEVATED/TAB ALARM ON. WILL REPORT TO ONCOMING NOC RN.
--- NOTE | 2022-05-24 05:57 | NUR ---
TRIM STENCIL MAKER SUMMARY PT AAOX2 AND HAS BEEN PLEASANT AND COOPERATIVE THIS SHIFT. DOES HAVE SOME BASELINE CONFUSION SO BED ALARM ON FOR SAFETY. R HIP DRESSING C/D/I BUT REPLACED ONCE TONIGHT DUE TO PT REMOVING IT. PT HAS BEEN ON CLEAR LIQUID DIET THROUGH THE NIGHT AND WILL START BOWEL PREP LATER THIS AM FOR A COLONOSCOPY. PT SEEMS A BIT SKEPTICAL THIS AM ABOUT WHETHER SHE SHOULD DRINK THE BOWEL PREP OR NOT. EDUCATED AND ECOURAGED TO FOLLOW THROUGH WITH PLAN FOR SCOPE. MEDICATED FOR PAIN X1 WITH NORCO 5/325 WITH GOOD PAIN RELIEF. VSS, WILL CONTINUE TO MONITOR.
--- NOTE | 2022-05-24 09:03 | NUR ---
SON IN ROOM, ENCOURAGING PATIENT TO DRINK BOWEL PREP. CURRENTLY DRINKING FIRST CUP. PT CONTINUES TO FORGET REASON FOR NEEDING TO DRINK AND DENIES KNOWING WHY SHE NEEDS IT. WHEN REMINDED SHE IS AGREEABLE.
[2022-05-24 10:14] LABS: BASOPHILS ABSOLUTE AUTO 0.05 K/mm3 (0.00-0.23); BASOPHILS PERCENT AUTO 1 % (0-2); EOSINOPHILS ABSOLUTE AUTO 0.49 K/mm3 (0.00-0.68); EOSINOPHILS PERCENT AUTO 7 % (0-6); Hematocrit 28.2 % (33.0-51.0); Hemoglobin 8.8 g/dL (11.5-16.0); IMMATURE GRAN ABSOLUTE AUTO 0.07 K/mm3 (0.00-0.10); IMMATURE GRAN PERCENT AUTO 1 % (0-1); LYMPHOCYTES ABSOLUTE AUTO 1.04 K/mm3 (0.84-5.20); LYMPHOCYTES PERCENT AUTO 14 % (21-46); MONOCYTES ABSOLUTE AUTO 0.38 K/mm3 (0.16-1.47); MONOCYTES PERCENT AUTO 5 % (4-13); Mean Corpuscular HGB 25.9 pg (26.0-34.0); Mean Corpuscular HGB Conc 31.2 g/dL (31.5-36.5); Mean Corpuscular Volume 83 fL (80-100); Mean Platelet Volume 9.5 fL (9.1-12.4); NEUTROPHILS ABSOLUTE AUTO 5.39 K/mm3 (1.96-9.15); NEUTROPHILS PERCENT AUTO 73 % (41-73); Platelet Count 201 K/mm3 (150-400); RDW Coefficient Variation 22.7 % (11.7-14.2); RDW Standard Deviation 67.6 fL (35.1-46.3); White Blood Cell Count 7.42 K/mm3 (4.00-11.30)
[2022-05-24 16:10] LABS: Bun/Creatinine Ratio 13.7 (12.0-20.0); Calcium, Blood 8.3 mg/dL (8.5-10.1); Creatinine, Blood 0.73 mg/dL (0.40-1.00); Potassium, Blood 3.8 mmol/L (3.5-5.5)
--- NOTE | 2022-05-24 16:14 | NUR ---
ATTEMPTED TO MAKE VISIT, PT HAVING COLONOSCOPY. PALLIATIVE CARE WILL CONT TO FOLLOW.
--- NOTE | 2022-05-24 17:12 | NUR ---
05/24/22 17[address] Mayito [address] CHANEY. 1647 SCOPE PASSED, PT NOT CLEAN OUT. 1648 SCOPE OUT. PT HAD LOSS OF BOWELS WHILE WAKING FROM MAC. PERICARE DONE, NEW LINENS, STACY HOSE, SOCKS AND BRIEFS APPLIED.
--- NOTE | 2022-05-24 18:16 | NUR ---
SHIFT SUMMARY PT A/O X2-3 AND VERY WEAK/FORGETFUL. PT DRINKING BOWEL PREP IN ORDER TO HAVE COLONOSCOPY. PT HAD MANY LIQUID STOOLS BUT WAS UNABLE TO GET CLEANED OUT ENOUGH FOR THE COLONOSCOPY TO BE SUCCESSFUL. PT IS NOW ON CLEAR LIQUID DIET. VSS.
--- NOTE | 2022-05-25 04:04 | NUR ---
POD5 RIGHT HIP NAILING. VSS. CIRCULATION AND SENSATION REMAINS INTACT IN RLE. DRESSINGS ARE INTACT. PT SLEPT ON AND OFF T/O THE NIGHT. MEDICATED FOR PAIN WITH NORCO. PT HAD MINIMAL PO INTAKE, NO N/V NOTED. PT AMBULATED TO [facility] TO VO[facility] AND HAVE A BM. THE BM WAS NOTED TO BE LIQUID AND DARK GREEN WITH COFFEE GROUNDS. PLAN FOR PT TO D/C HOME ON HOSPICE. THE PATIENT IS CURRENTLY RESTING IN BED, IN NO DISTRESS, CALL LIGHT IN REACH, BED ALARM ON FOR SAFETY.
--- NOTE | 2022-05-25 09:56 | NUR ---
Spiritual Care: Consult Request Pt. is awake and welcomes my visit. Pt. displays evidence of confusion but is pleasant. Pt. declines spiritual care, but is interested in conversation. Engage in active listening with a calming presence. Pt. displayed evidence of being encouraged. Will remain available to Pt.
[2022-05-25 12:58] LABS: SARS-Cov-2 (COVID-19) PCR, MMC NEGATIVE (NEGATIVE)
--- NOTE | 2022-05-25 13:32 | NUR ---
attempted to call report to [facility], left this rn's name and callback number with front end engineer as recieving nurse unable to take report at this time. pt left with transport. all belongings with patient. she has been calling appropriatly today and working with therapy. occasional loose stools slowing down. tolerating po well. denies pain in r leg but endorsed headache this afternoon. medication per emar. dressings remain cdi.
--- NOTE | 2022-05-25 13:43 | NUR ---
report given to zeb bryan at this time. answered all questions.
--- NOTE | 2022-05-25 13:47 | NUR ---
powerglide left in place, plan is for 1 more day of iv abx.
== END 2022-05-25 13:47 | DRG 480 ==
LOC: ER 17:05 → ICUE 05-17 → PCU 05-17 → ICUW 05-17 → SURS 05-17 → ICUE 05-17 00:05 → PCU 05-18 01:48 → SURS 05-19 16:15
PROVIDERS: Family Medicine; Family Medicine Adult Medicine; Internal Medicine Gastroenterology; Student in an Organized Health Care Education/Training Program; ADMIT Internal Medicine
PROC: 30233N1 Transfusion of Nonautologous Red Blood Cells into Peripheral Vein, Percutaneous Approach (ICD-10-PCS; 2022-05-17)
PROC: 0DJ08ZZ Inspection of Upper Intestinal Tract, Via Natural or Artificial Opening Endoscopic (ICD-10-PCS; principal; 2022-05-17 16:30)
PROC: 0QS636Z Reposition Right Upper Femur with Intramedullary Internal Fixation Device, Percutaneous Approach (ICD-10-PCS; 2022-05-20)
PROC: 0DJD8ZZ Inspection of Lower Intestinal Tract, Via Natural or Artificial Opening Endoscopic (ICD-10-PCS; 2022-05-24)
DX: S72.144A Nondisplaced intertrochanteric fracture of right femur, initial encounter for closed fracture (principal); G93.41 Metabolic encephalopathy; R57.8 Other shock; K92.1 Melena; I50.22 Chronic systolic (congestive) heart failure; D62 Acute posthemorrhagic anemia; N17.9 Acute kidney failure, unspecified; E87.1 Hypo-osmolality and hyponatremia; B37.81 Candidal esophagitis; Z51.5 Encounter for palliative care; Z66 Do not resuscitate; I11.0 Hypertensive heart disease with heart failure; I25.10 Atherosclerotic heart disease of native coronary artery without angina pectoris; M81.0 Age-related osteoporosis without current pathological fracture; E03.9 Hypothyroidism, unspecified; J44.9 Chronic obstructive pulmonary disease, unspecified; F32.A Depression, unspecified; F03.90 Unspecified dementia, unspecified severity, without behavioral disturbance, psychotic disturbance, mood disturbance, and anxiety; Z87.891 Personal history of nicotine dependence; Z86.718 Personal history of other venous thrombosis and embolism; Z87.01 Personal history of pneumonia (recurrent); Z87.19 Personal history of other diseases of the digestive system; Z87.440 Personal history of urinary (tract) infections; Z90.49 Acquired absence of other specified parts of digestive tract; Z90.710 Acquired absence of both cervix and uterus; Z98.890 Other specified postprocedural states; Z79.02 Long term (current) use of antithrombotics/antiplatelets; Z79.899 Other long term (current) drug therapy; W18.39XA Other fall on same level, initial encounter
CPT/HCPCS: 36415; 36430; 51702; 70450; 71045; 72125; 73502; 74177; 80048; 80053; 81001; 82272; 82607; 82728; 82746; 82947; 83540; 83550; 83735; 83880; 84443; 84484; 85014; 85018; 85025; 85045; 85610; 85730; 86850; 86900; 86901; 86923; 87040; 87077; 87086; 87147; 87186; 93005; 93010; 93306; 96374-59; 97110; 97162; 97530; 99291-25; A9270; C1713; C9113; J0171; J0696; J1100; J1430; J2270; J2370; J2405; J2704; J2765; J2916; J3010; J3370; J7030; J7050; J7120; P9016; Q9967; U0004

== ENCOUNTER 2022-06-23 21:53 | Emergency (ER) | payer OTHER ==
[~2022-06-23] VITALS: Ht 167.6 cm; Wt 52.6 kg
[~2022-06-23 21:53] MED LIST changes: +EUTHYROX100 MCG PO; +FURO80 PO; +KLOR-CON 1010 ME1 PO; +ZESTRIL40 M1 PO
[2022-06-23] MEDS ORDERED: ATOR10 PO (22:06)
[2022-06-23] MEDS ORDERED: Diflucan100 MG PO (22:07)
[2022-06-23] MEDS ORDERED: MIRALAX17 GM PO (22:08)
== END 2022-06-23 23:22 | disposition home or self-care (01) ==
LOC: ER 21:53
DX: S80.02XA Contusion of left knee, initial encounter (principal); L03.116 Cellulitis of left lower limb; L03.115 Cellulitis of right lower limb; S73.102A Unspecified sprain of left hip, initial encounter; E11.9 Type 2 diabetes mellitus without complications; I11.0 Hypertensive heart disease with heart failure; I50.20 Unspecified systolic (congestive) heart failure; W01.0XXA Fall on same level from slipping, tripping and stumbling without subsequent striking against object, initial encounter; Z79.890 Hormone replacement therapy; Z79.899 Other long term (current) drug therapy; Z87.891 Personal history of nicotine dependence
CPT/HCPCS: 73562-RT

== ENCOUNTER 2022-06-25 18:34 | Emergency (ER) | payer OTHER ==
[~2022-06-25] VITALS: Ht 167.6 cm; Wt 52.2 kg
[~2022-06-25 18:34] MED LIST changes: +ATOR10 PO; +Diflucan100 MG PO; +MIRALAX17 GM PO
[2022-06-25] MEDS ORDERED: CEPH500 PO (19:52)
== END 2022-06-25 20:34 | disposition home or self-care (01) ==
LOC: ER 18:34
DX: S80.02XA Contusion of left knee, initial encounter (principal); M25.552 Pain in left hip; W01.0XXA Fall on same level from slipping, tripping and stumbling without subsequent striking against object, initial encounter; L03.115 Cellulitis of right lower limb; E11.9 Type 2 diabetes mellitus without complications; I11.0 Hypertensive heart disease with heart failure; I50.20 Unspecified systolic (congestive) heart failure; J44.9 Chronic obstructive pulmonary disease, unspecified; I25.10 Atherosclerotic heart disease of native coronary artery without angina pectoris; Z79.899 Other long term (current) drug therapy; Z87.891 Personal history of nicotine dependence
CPT/HCPCS: 73502; 73562-LT; A9270

== ENCOUNTER 2022-06-28 11:56 | Emergency (ER) | payer OTHER ==
[~2022-06-28] VITALS: Ht 167.6 cm; Wt 55.3 kg
[2022-06-28 12:37] LABS: BASOPHILS ABSOLUTE AUTO 0.05 K/mm3 (0.00-0.23); BASOPHILS PERCENT AUTO 1 % (0-2); EOSINOPHILS ABSOLUTE AUTO 0.28 K/mm3 (0.00-0.68); EOSINOPHILS PERCENT AUTO 6 % (0-6); Hematocrit 36.4 % (33.0-51.0); Hemoglobin 11.8 g/dL (11.5-16.0); IMMATURE GRAN ABSOLUTE AUTO 0.01 K/mm3 (0.00-0.10); IMMATURE GRAN PERCENT AUTO 0 % (0-1); LYMPHOCYTES ABSOLUTE AUTO 0.98 K/mm3 (0.84-5.20); LYMPHOCYTES PERCENT AUTO 19 % (21-46); MONOCYTES ABSOLUTE AUTO 0.33 K/mm3 (0.16-1.47); MONOCYTES PERCENT AUTO 7 % (4-13); Mean Corpuscular HGB 29.1 pg (26.0-34.0); Mean Corpuscular HGB Conc 32.4 g/dL (31.5-36.5); Mean Corpuscular Volume 90 fL (80-100); Mean Platelet Volume 9.9 fL (9.1-12.4); NEUTROPHILS ABSOLUTE AUTO 3.42 K/mm3 (1.96-9.15); NEUTROPHILS PERCENT AUTO 68 % (41-73); Platelet Count 146 K/mm3 (150-400); RDW Coefficient Variation 22.6 % (11.7-14.2); RDW Standard Deviation 75.3 fL (35.1-46.3); Red Blood Cell Count 4.05 M/mm3 (3.80-5.20); White Blood Cell Count 5.07 K/mm3 (4.00-11.30)
[2022-06-28 12:47] LABS: Albumin, Blood 2.7 g/dL (3.4-5.0); Albumin/Globulin Ratio 0.9 (0.8-1.8); Bilirubin, Total 0.9 mg/dL (0.1-1.0); Bun/Creatinine Ratio 26.3 (12.0-20.0); Calcium, Blood 8.1 mg/dL (8.5-10.1); Creatinine, Blood 0.76 mg/dL (0.40-1.00); Globulin, Blood 2.9 g/dL (2.2-4.0); Potassium, Blood 3.6 mmol/L (3.5-5.5); Total Protein, Blood 5.6 g/dL (6.4-8.2)
[2022-06-28 13:29] LABS: Source, Urine Voided
[2022-06-28 13:32] LABS: Appearance, Urine Clear (Clear); Bilirubin, Urine Neg (Neg); Blood, Urine Neg (Neg); Color, Urine Yellow (P-Yellow); Glucose Qualitative, Urine Neg (Neg); Ketones, Urine Neg (Neg); Leukocyte Esterase, Urine Neg (Neg); Nitrite, Urine Neg (Neg); Protein, Urine Neg (Neg); Specific Gravity, Urine 1.015 (1.003-1.022); Urobilinogen, Urine NORM (Normal)
== END 2022-06-28 15:30 | disposition home or self-care (01) ==
LOC: ER 11:56
PROVIDERS: Emergency Medicine
DX: L03.115 Cellulitis of right lower limb (principal); L03.116 Cellulitis of left lower limb; R25.2 Cramp and spasm; E11.9 Type 2 diabetes mellitus without complications; I11.0 Hypertensive heart disease with heart failure; I50.20 Unspecified systolic (congestive) heart failure; I25.10 Atherosclerotic heart disease of native coronary artery without angina pectoris; Z79.899 Other long term (current) drug therapy; Z87.891 Personal history of nicotine dependence
CPT/HCPCS: 36415; 73502; 80053; 81003; 85025; 93005; 93010; 99284-25

== ENCOUNTER → 2022-08-30 | Outpatient (CLI) | payer OTHER ==
[2022-08-31 10:00] LABS: C DIFFICILE DNA NEGATIVE (Negative)
== END | disposition home or self-care (01) ==
LOC: LAB 15:23 → LAB SHORT 15:23
PROVIDERS: Student in an Organized Health Care Education/Training Program
DX: R19.7 Diarrhea, unspecified (principal)
CPT/HCPCS: 87493; 89055

== ENCOUNTER 2022-09-02 10:10 | Emergency (ER) | payer OTHER ==
[~2022-09-02] VITALS: Ht 162.6 cm; Wt 51.7 kg
[2022-09-02 11:01] LABS: BASOPHILS ABSOLUTE AUTO 0.07 K/mm3 (0.00-0.23); BASOPHILS PERCENT AUTO 1 % (0-2); EOSINOPHILS ABSOLUTE AUTO 0.55 K/mm3 (0.00-0.68); EOSINOPHILS PERCENT AUTO 10 % (0-6); Hematocrit 32.1 % (33.0-51.0); Hemoglobin 10.5 g/dL (11.5-16.0); IMMATURE GRAN ABSOLUTE AUTO 0.01 K/mm3 (0.00-0.10); IMMATURE GRAN PERCENT AUTO 0 % (0-1); LYMPHOCYTES ABSOLUTE AUTO 1.05 K/mm3 (0.84-5.20); LYMPHOCYTES PERCENT AUTO 19 % (21-46); MONOCYTES ABSOLUTE AUTO 0.36 K/mm3 (0.16-1.47); MONOCYTES PERCENT AUTO 7 % (4-13); Mean Corpuscular HGB 29.7 pg (26.0-34.0); Mean Corpuscular HGB Conc 32.7 g/dL (31.5-36.5); Mean Corpuscular Volume 91 fL (80-100); Mean Platelet Volume 11.6 fL (9.1-12.4); NEUTROPHILS PERCENT AUTO 63 % (41-73); Platelet Count 129 K/mm3 (150-400); RDW Coefficient Variation 18.1 % (11.7-14.2); RDW Standard Deviation 58.7 fL (35.1-46.3); Red Blood Cell Count 3.54 M/mm3 (3.80-5.20); White Blood Cell Count 5.54 K/mm3 (4.00-11.30)
[2022-09-02 11:20] LABS: Albumin, Blood 2.4 g/dL (3.4-5.0); Albumin/Globulin Ratio 0.7 (0.8-1.8); Bilirubin, Total 0.8 mg/dL (0.1-1.0); Calcium, Blood 7.9 mg/dL (8.5-10.1); Creatinine, Blood 1.94 mg/dL (0.40-1.00); Globulin, Blood 3.3 g/dL (2.2-4.0); Total Protein, Blood 5.7 g/dL (6.4-8.2)
[2022-09-02 11:21] LABS: Potassium, Blood 5.3 mmol/L (3.5-5.5)
[2022-09-02 12:39] LABS: Base Excess Venous 1.2 mmol/L; Bicarbonate Venous 24.7 mmol/L (24.0-30.0); PCO2 Venous 45.2 mmHg (38-42); pH Blood Venous 7.38 (7.34-7.37)
[2022-09-02 14:01] LABS: Source, Urine Clean Catch
[2022-09-02 14:10] LABS: Appearance, Urine Clear (Clear); Bilirubin, Urine Neg (Neg); Blood, Urine Neg (Neg); Color, Urine Amber (P-Yellow); Glucose Qualitative, Urine Neg (Neg); Ketones, Urine 1+ (Neg); Leukocyte Esterase, Urine 3+ (Neg); Nitrite, Urine Neg (Neg); Protein, Urine 2+ (Neg); Urobilinogen, Urine NORM (Normal)
[2022-09-02 14:27] LABS: Bacteria Many /hpf; Red Blood Cells, Urine 25-50 /hpf (0-2); Squamous Epithelial Cells Mod /hpf (Few)
[2022-09-02 14:28] LABS: Calcium Oxalate Crystals Rare /hpf; Granular Casts 0-2 /lpf (0)
[2022-09-02 18:45] VITALS: BP 118/104
== END 2022-09-02 19:47 | disposition home or self-care (01) ==
LOC: ER 10:10
PROVIDERS: Family Medicine
DX: R60.1 Generalized edema (principal); Z79.899 Other long term (current) drug therapy; E11.9 Type 2 diabetes mellitus without complications; I11.0 Hypertensive heart disease with heart failure; I25.10 Atherosclerotic heart disease of native coronary artery without angina pectoris; I50.20 Unspecified systolic (congestive) heart failure; Z87.891 Personal history of nicotine dependence
CPT/HCPCS: 36415; 71260; 80053; 81001; 82803; 83880; 84439; 84443; 84484; 85025; 85379; 87086; 93005; 93010; 96360-59; 99284-25; J7030; Q9967

== ENCOUNTER 2022-09-12 12:58 | Observation (INO) | payer OTHER ==
[2022-09-12] MEDS ORDERED: FERROUS GLUCON324 M7 PO (13:26)
[2022-09-12] MEDS ORDERED: ACIDOPHILUS1 EAC3 PO (13:28)
[2022-09-12] MEDS ORDERED: METAMUCIL POWD798 GM PO (13:39)
[2022-09-12] MEDS ORDERED: METO50 PO (13:40)
[2022-09-12] MEDS ORDERED: MULVITA PO (13:41)
[2022-09-12] MEDS ORDERED: SULTRIDS PO (13:42)
[2022-09-12] MEDS ORDERED: FURO80 PO (13:43)
[2022-09-12] MEDS ORDERED: BENZ100A PO (13:45)
[2022-09-12] MEDS ORDERED: ALUM-MAG HYDRO360 M1 PO (13:46)
[2022-09-12] MEDS ORDERED: Adult Glycerin1 EACH PR (13:47)
[2022-09-12] MEDS ORDERED: LOPE2C PO (13:48)
[2022-09-12] MEDS ORDERED: DULCOLAX400 MG/5 M PO (13:49)
[2022-09-12] MEDS ORDERED: GUAI600T33 PO (13:50)
[2022-09-12] MEDS ORDERED: NAPR500 PO (13:51)
[2022-09-12] MEDS ORDERED: SENNA LAXATIVE8.6 MG PO (13:52)
[2022-09-12] MEDS ORDERED: ACET500 PO (13:53)
[2022-09-12 14:11] LABS: BASOPHILS ABSOLUTE AUTO 0.06 K/mm3 (0.00-0.23); BASOPHILS PERCENT AUTO 1 % (0-2); EOSINOPHILS ABSOLUTE AUTO 0.35 K/mm3 (0.00-0.68); EOSINOPHILS PERCENT AUTO 7 % (0-6); Hematocrit 29.6 % (33.0-51.0); Hemoglobin 9.9 g/dL (11.5-16.0); IMMATURE GRAN ABSOLUTE AUTO 0.04 K/mm3 (0.00-0.10); IMMATURE GRAN PERCENT AUTO 1 % (0-1); LYMPHOCYTES PERCENT AUTO 22 % (21-46); MONOCYTES ABSOLUTE AUTO 0.37 K/mm3 (0.16-1.47); MONOCYTES PERCENT AUTO 7 % (4-13); Mean Corpuscular HGB 29.7 pg (26.0-34.0); Mean Corpuscular HGB Conc 33.4 g/dL (31.5-36.5); Mean Corpuscular Volume 89 fL (80-100); Mean Platelet Volume 10.5 fL (9.1-12.4); NEUTROPHILS ABSOLUTE AUTO 3.39 K/mm3 (1.96-9.15); NEUTROPHILS PERCENT AUTO 63 % (41-73); Platelet Count 148 K/mm3 (150-400); RDW Coefficient Variation 18.6 % (11.7-14.2); RDW Standard Deviation 58.2 fL (35.1-46.3); Red Blood Cell Count 3.33 M/mm3 (3.80-5.20); White Blood Cell Count 5.41 K/mm3 (4.00-11.30)
[2022-09-12 14:26] LABS: Albumin, Blood 2.4 g/dL (3.4-5.0); Albumin/Globulin Ratio 0.8 (0.8-1.8); Bilirubin, Total 0.6 mg/dL (0.1-1.0); Bun/Creatinine Ratio 15.3 (12.0-20.0); Calcium, Blood 8.2 mg/dL (8.5-10.1); Creatinine, Blood 3.78 mg/dL (0.40-1.00); Globulin, Blood 3.2 g/dL (2.2-4.0); Potassium, Blood 5.3 mmol/L (3.5-5.5); Total Protein, Blood 5.6 g/dL (6.4-8.2)
[2022-09-12 14:37] LABS: Bicarbonate Venous 22.3 mmol/L (24.0-30.0); PCO2 Venous 44.4 mmHg (38-42); pH Blood Venous 7.34 (7.34-7.37)
[2022-09-12 15:17] LABS: Influenza A, PCR NEGATIVE (NEGATIVE); Influenza B, PCR NEGATIVE (NEGATIVE); Resp Syncytial Virus, PCR NEGATIVE (NEGATIVE); SARS-Cov-2 (COVID-19) PCR, MMC NEGATIVE (NEGATIVE)
[2022-09-12 15:35] LABS: Source, Urine Straight Cath
[2022-09-12 15:45] LABS: Appearance, Urine Clear (Clear); Blood, Urine Neg (Neg); Color, Urine Amber (P-Yellow); Glucose Qualitative, Urine Neg (Neg); Ketones, Urine 1+ (Neg); Leukocyte Esterase, Urine 3+ (Neg); Nitrite, Urine Neg (Neg); Protein, Urine 2+ (Neg); Specific Gravity, Urine 1.015 (1.003-1.022); Urobilinogen, Urine NORM (Normal)
[2022-09-12 15:53] LABS: Bilirubin, Urine 2+ (Neg)
[2022-09-12 15:55] LABS: Bacteria Mod /hpf; Red Blood Cells, Urine 0-2 /hpf (0-2); Squamous Epithelial Cells Few /hpf (Few); Transitional Epithelial Cells Few /hpf (0-Rare)
[2022-09-12 20:14] VITALS: BP 126/89
== END 2022-09-14 11:13 | disposition hospice, home (50) ==
LOC: ER 12:58 → MEDS 12:59 → ENPENDDIS 09-14 09:25 → MEDS 09-14 11:13
PROVIDERS: Emergency Medicine; ADMIT Internal Medicine
DX: Z51.5 Encounter for palliative care (principal); J96.01 Acute respiratory failure with hypoxia; R57.9 Shock, unspecified; G92.8 Other toxic encephalopathy; N17.9 Acute kidney failure, unspecified; I13.0 Hypertensive heart and chronic kidney disease with heart failure and stage 1 through stage 4 chronic kidney disease, or unspecified chronic kidney disease; E11.22 Type 2 diabetes mellitus with diabetic chronic kidney disease; N18.9 Chronic kidney disease, unspecified; I50.22 Chronic systolic (congestive) heart failure; Z66 Do not resuscitate; K21.9 Gastro-esophageal reflux disease without esophagitis; J44.9 Chronic obstructive pulmonary disease, unspecified; I25.10 Atherosclerotic heart disease of native coronary artery without angina pectoris; E03.9 Hypothyroidism, unspecified; I35.0 Nonrheumatic aortic (valve) stenosis; Z20.822 Contact with and (suspected) exposure to COVID-19
CPT/HCPCS: 0241U; 36415; 51702; 71045; 80053; 81001; 82803; 83605; 83880; 84484; 85025; 87086; 96361-59; 96374-59; 96375; 96376; 99285-25; A9270; G0378; J0696; J2060; J7030